=== PATIENT | female | born 2000 | race Caucasian/White ===

== ENCOUNTER → 2020-05-19 13:38 | Outpatient (BNVA) | payer MEDICAID, SELFPAY | PROVIDERS: Visit Provider Psychiatry & Neurology Psychiatry | DX: F60.3 Borderline personality disorder (principal); F43.12 Post-traumatic stress disorder, chronic; F33.2 Major depressive disorder, recurrent severe without psychotic features | CPT/HCPCS: 99204 ==

== ENCOUNTER 2020-05-29 16:51 | Emergency (ER) | payer MEDICAID, SELFPAY ==
[2020-05-29 16:55] VITALS: BP 113/59; PULSE 72; RESP 18; TEMP 36.6; O2SAT 100; BMI 37.8
[2020-05-29 17:52] VITALS: BP 120/77; PULSE 98; RESP 16; O2SAT 100
--- NOTE | 2020-05-29 18:11 | ED_ITS ---
HPI - Female Genitourinary General: Chief complaint: Urogenital-Female Stated complaint: UNABLE TO URINATE X 2 DAYS Time Seen by Provider: 05/29/20 17:47 Source: patient Mode of arrival: ambulatory Limitations: no limitations History of Present Illness: HPI Narrative: Patient is a 20-year-old female who presents to ED today with a complaint of difficulty with urination. Patient tells me over the past 2 weeks she has had dribbling to the point where she can barely urinate. She states she is having suprapubic pain. She tells me several years ago she had extensive vaginal reconstruction surgery after a rope swing lacerated her perineal region. Patient tells me she has had intermittent problems with urinary retention but states it normally only lasts a few days. She states she is having bladder spasms. She is having normal bowel movements. No fevers. She currently has an appointment with Dr. Levin scheduled for 06/16/2020. Associated symptoms: Reports abdominal pain (suprapubic); Deny headache(s), nausea or vaginal discharge Date of Last Menstrual Period: 05/29/20 Review of Systems Const: Denies: fever(s), chills, body aches or fatigue Card: Denies: chest pain Resp: Denies: dyspnea GI: Reports: abdominal pain (suprapubic); Denies: nausea, vomiting or diarrhea : Reports: difficulty voiding, urinary urgency, urinary hesitancy and dribbling; Denies: flank pain, urinary incontinence, hematuria, vaginal odor, vaginal bleeding, vaginal discharge or pelvic pain Musc: Denies: neck pain or back pain Skin/Breast: Denies: rash Neuro: Denies: headache(s) [facility] ED PFSH: Social History Smoking and tobacco status: former smoker Quit status (tobacco): has quit using tobacco Year quit tobacco: 2019 Second hand smoke exposure: No Current gender identity: Female Female Reproductive History: Date of last menstrual period: 05/29/20 Physical Exam Const: COMMON NORMALS: no acute distress, average body habitus, patient oriented x3, no limitations, healthy appearing, alert and well nourished Resp: COMMON NORMALS: normal respiratory effort and clear to auscultation bilaterally AUSCULTATION: clear to auscultation bilaterally Cardio: COMMON NORMALS: regular rate and regular rhythm RATE: regular rate RHYTHM: regular rhythm GI: COMMON NORMALS: Normal to inspection, nondistended, normoactive bowel sounds present, Soft to palpation, No hepatosplenomegaly present and no masses PALPATION: Yes Soft to palpation, Yes Tenderness to palpation present (GI) (suprapubic) and Yes No hepatosplenomegaly present : COMMON NORMALS: Yes no CVA tenderness BLADDER/KIDNEY EXAM: Yes no CVA tenderness Back/Pelvis: COMMON NORMALS: no CVA tenderness Neuro: COMMON NORMALS: patient oriented x3 SENSORIUM/ORIENTATION: Yes alert Skin: COMMON NORMALS: no rashes or lesions noted GENERAL SKIN EXAM: no rashes or lesions noted Course Reevaluation(s): Reevaluation #1: bladder scanner read between 400-500ml; RN reports they drained approximately 400cc when they cathed patient Vital Signs: Vital signs: Vital Signs Temperature 97.8 F 05/29/20 16:55 Pulse Rate 98 05/29/20 17:52 Respiratory Rate 16 05/29/20 18:44 Blood Pressure 120/77 05/29/20 17:52 Pulse Oximetry 100 05/29/20 18:44 MDM - Female MDM Narrative: Medical decision making narrative: Patient presenting with urinary retention. Patient was not able to urinate here. She had over 400 mL in her bladder that was drained after cath. Patient's labs here are non- concerning. Her vital signs are stable. As much as patient does not want a Mccloud catheter she states her urinary retention and subsequent suprapubic pain is interfering with life therefore agrees to this. She currently has an appointment scheduled with Dr. Levin on 06/16. I will place her information with case management to try to get her a sooner appointment. Lab Data: Labs: Lab Results 05/29/20 05/29/20 05/29/20 Range/Units 18:41 18:41 18:59 WBC 5.6 (4.0-10.0) 10^3/ uL RBC 4.01 L (4.1-5.3) 10^6/u L Hgb 12.0 (11.5-15.3) g/dL Hct 37.0 (37.0-47.0) % MCV 92.3 (81-99) fL MCH 29.9 (28.0-34.0) pg MCHC 32.4 (30.0-36.0) g/dL RDW 13.9 (12.1-15.1) % Plt Count 175 (130-400) 10^3/c mm MPV 10.2 (7.4-10.4) fL Neut % (Auto) 65.5 % Lymph % (Auto) 25.6 % [place] % (Auto) 5.8 % Eos % (Auto) 2.5 % Baso % (Auto) 0.4 % Neut # (Auto) 3.64 (1.8-7.7) 10^3/u L Lymph # (Auto) 1.4 (0.8-4.8) 10^3/u L [place] # (Auto) 0.3 (0.2-0.9) 10^3/u L Eos # (Auto) 0.1 (0.0-0.8) 10^3/u L Baso # (Auto) 0.0 (0.0-0.1) 10^3/u L Nucleated RBC % (a uto) 0 % Nucleated RBCs # 0.0 /100WBC Sodium (136-145) mmol/L Potassium (3.5-5.1) mmol/L Chloride (98-107) mmol/L Carbon Dioxide (22-29) mmol/L Anion Gap (5-19) BUN (6-20) mg/dL Creatinine (0.5-0.9) mg/dL GFR Calculation (90-130) mL/min Glucose (65-115) mg/dL Calculated Osmolal ity (285-295) mOsm/k g Calcium (8.5-10.5) mg/dL Total Bilirubin (0.15-1.2) mg/dL AST (0-32) U/L ALT (0-33) U/L Alkaline Phosphata se (35-105) IU/L Total Protein (6.6-8.7) g/dL Albumin (3.5-5.2) g/dL Globulin (1.3-4.6) g/dL Urine Color Yellow (Yellow) Urine Appearance Clear (CLEAR) Urine pH 6 (5-7) Ur Specific Gravit y 1.015 (1.005-1.030) Urine Protein Neg (Negative) Urine Glucose (UA) Norm (Normal) Urine Ketones Negative (Negative) Urine Blood Neg (Negative) Urine Nitrate Negative (Negative) Urine Bilirubin Neg (Negative) Urine Urobilinogen Norm (Negative) mg/dL Ur Leukocyte Emily ase Negative (Negative) Urine HCG, Qual Negative (Negative) 05/29/20 Range/Units 18:59 WBC (4.0-10.0) 10^3/ uL RBC (4.1-5.3) 10^6/u L Hgb (11.5-15.3) g/dL Hct (37.0-47.0) % MCV (81-99) fL MCH (28.0-34.0) pg MCHC (30.0-36.0) g/dL RDW (12.1-15.1) % Plt Count (130-400) 10^3/c mm MPV (7.4-10.4) fL Neut % (Auto) % Lymph % (Auto) % [place] % (Auto) % Eos % (Auto) % Baso % (Auto) % Neut # (Auto) (1.8-7.7) 10^3/u L Lymph # (Auto) (0.8-4.8) 10^3/u L [place] # (Auto) (0.2-0.9) 10^3/u L Eos # (Auto) (0.0-0.8) 10^3/u L Baso # (Auto) (0.0-0.1) 10^3/u L Nucleated RBC % (a uto) % Nucleated RBCs # /100WBC Sodium 140 (136-145) mmol/L Potassium 3.7 (3.5-5.1) mmol/L Chloride 104 (98-107) mmol/L Carbon Dioxide 25 (22-29) mmol/L Anion Gap 14.7 (5-19) BUN 6 (6-20) mg/dL Creatinine 0.7 (0.5-0.9) mg/dL GFR Calculation 104.6 (90-130) mL/min Glucose 95 (65-115) mg/dL Calculated Osmolal ity 287 (285-295) mOsm/k g Calcium 9.0 (8.5-10.5) mg/dL Total Bilirubin 0.4 (0.15-1.2) mg/dL AST 13 (0-32) U/L ALT 13 (0-33) U/L Alkaline Phosphata se 86 (35-105) IU/L Total Protein 7.0 (6.6-8.7) g/dL Albumin 4.2 (3.5-5.2) g/dL Globulin 2.8 (1.3-4.6) g/dL Urine Color (Yellow) Urine Appearance (CLEAR) Urine pH (5-7) Ur Specific Gravit y (1.005-1.030) Urine Protein (Negative) Urine Glucose (UA) (Normal) Urine Ketones (Negative) Urine Blood (Negative) Urine Nitrate (Negative) Urine Bilirubin (Negative) Urine Urobilinogen (Negative) mg/dL Ur Leukocyte Emily ase (Negative) Urine HCG, Qual (Negative) Discharge Plan Discharge Patient Disposition: Home Clinical Impression: Urinary retention Condition: Stable Prescriptions: No Action trazodone 50 mg tablet 100 mg PO .HS PRN (Reason: insomnia) Qty: 60 RF: 1 lamotrigine [Lamictal] 25 mg tablet 25 mg PO DAILY Qty: 45 RF: 0 levothyroxine 150 mcg tablet 150 mcg PO DAILY RF: 0 Discharge Orders: Discharge ED (Routine); Ordered 05/29/20 Ordered By: Alisa Leal Referrals: Kasandra Ruiz [Primary Care Provider] - Donaldo Levin MD [Physician] - Patient Instructions: Acute Urinary Retention in Women (ED) Activity Restrictions/Additional Instructions: As discussed I have placed your information with case management to try to get you a sooner appointment with Dr. Levin. You need to return to the emergency department if your Mccloud catheter is not draining appropriately, you begin having severe abdominal pain, fevers, or any other concerns you may have. Coding Level of Care Code ED Medical Insurance Biller for Chg Fwd Exam Detailed
[2020-05-29 18:44] VITALS: RESP 16; O2SAT 100
[2020-05-29 18:48] LABS: Add Urine Microscopic? NO
[2020-05-29 18:56] LABS: Bilirubin Urine Neg (Negative); Blood Urine Neg (Negative); Glucose Urine UA Norm (Normal); Ketones Urine Negative (Negative); Nitrate Urine Negative (Negative); Protein Urine Neg (Negative); Specific Gravity, Urine 1.015 (1.005-1.030); Urine Appearance Clear (CLEAR); Urine Color Yellow (Yellow); pH Urine 6 (5-7)
[2020-05-29 18:57] LABS: Leukocyte Esterase Urine Negative (Negative); Urobilinogen Urine Norm (Negative)
[2020-05-29 19:27] LABS: Basophils % 0.4 %; Eosinophils # 0.1 10^3/uL (0.0-0.8); Eosinophils % 2.5 %; Lymphocytes # 1.4 10^3/uL (0.8-4.8); Lymphocytes % 25.6 %; Mean Corpuscular HGB Conc 32.4 g/dL (30.0-36.0); Mean Corpuscular Hemoglobin 29.9 pg (28.0-34.0); Mean Corpuscular Volume 92.3 fL (81-99); Mean Platelet Volume 10.2 fL (7.4-10.4); Monocytes # 0.3 10^3/uL (0.2-0.9); Monocytes % 5.8 %; Neutrophils # 3.64 10^3/uL (1.8-7.7); Neutrophils % 65.5 %; Nucleated Red Blood Cells % 0 %; Platelet Count 175 10^3/cmm (130-400); Red Blood Count 4.01 10^6/uL (4.1-5.3); Red Cell Distribution Width 13.9 % (12.1-15.1); White Blood Count 5.6 10^3/uL (4.0-10.0)
[2020-05-29 19:45] LABS: Alanine Aminotransferase 13 U/L (0-33); Albumin Level 4.2 g/dL (3.5-5.2); Alkaline Phosphatase 86 IU/L (35-105); Anion Gap 14.7 (5-19); Aspartate Amino Transferase 13 U/L (0-32); Blood Urea Nitrogen 6 mg/dL (6-20); Carbon Dioxide 25 mmol/L (22-29); Chloride 104 mmol/L (98-107); Globulin 2.8 g/dL (1.3-4.6); Glomerular Filtration Rate 104.6 mL/min (90-130); Glucose 95 mg/dL (65-115); Osmolality Calculated 287 mOsm/kg (285-295); Potassium 3.7 mmol/L (3.5-5.1); Sodium 140 mmol/L (136-145); Total Bilirubin 0.4 mg/dL (0.15-1.2)
[2020-05-29 20:56] VITALS: PULSE 86; RESP 16; O2SAT 100
--- NOTE | 2020-05-30 09:13 | DCPLANNER ---
advertising agency manager had message to schedule a follow up appointment for patient with Dr. Levin. advertising agency manager called the office of Dr. Levin, spoke with Rosangela, gave clinic patients information. advertising agency manager was told that patients information would be printed and reviewed. Clinic will call patient with appointment information.
--- NOTE | 2020-06-04 11:07 | DCPLANNER ---
Patient has a follow up appointment scheduled for Tuesday, June 16, 2020 at 3:[address] Levin. Clinic will call patient with appointment information.
--- NOTE | 2020-07-03 15:24 | DCPLANNER ---
Patient had a follow up appointment scheduled for 06.16.[address] Levin - patient did attend appointment.
== END 2020-05-29 20:58 | disposition home or self-care (01) ==
PROVIDERS: Emergency Provider Physician Assistant; PCP Nurse Practitioner Family
DX: R33.9 Retention of urine, unspecified (principal); Z87.891 Personal history of nicotine dependence
CPT/HCPCS: 36415; 51702; 51798; 80053; 81003; 81025; 85025; 99283

== ENCOUNTER → 2020-06-27 09:12 | Outpatient (BNVA) | payer MEDICAID, SELFPAY | PROVIDERS: Visit Provider Psychiatry & Neurology Psychiatry | DX: F33.2 Major depressive disorder, recurrent severe without psychotic features (principal); F43.12 Post-traumatic stress disorder, chronic; F60.3 Borderline personality disorder | CPT/HCPCS: 99213 ==

== ENCOUNTER → 2020-07-03 14:07 | Outpatient (BNVA) | payer MEDICAID, SELFPAY | PROVIDERS: Visit Provider Counselor Professional | DX: F33.2 Major depressive disorder, recurrent severe without psychotic features (principal); F43.12 Post-traumatic stress disorder, chronic; F60.3 Borderline personality disorder | CPT/HCPCS: 90832 ==

== ENCOUNTER → 2020-07-04 10:24 | Outpatient (BNVA) | payer MEDICAID, SELFPAY | PROVIDERS: PCP Nurse Practitioner Family; Visit Provider Urology | DX: N39.9 Disorder of urinary system, unspecified (principal); N81.89 Other female genital prolapse; R33.9 Retention of urine, unspecified; N39.3 Stress incontinence (female) (male) | CPT/HCPCS: 81003 ==

== ENCOUNTER → 2020-07-22 11:10 | Outpatient (BNVA) | payer MEDICAID, SELFPAY | PROVIDERS: PCP Nurse Practitioner Family; Visit Provider Counselor Professional | DX: F33.2 Major depressive disorder, recurrent severe without psychotic features (principal); F43.12 Post-traumatic stress disorder, chronic; F60.3 Borderline personality disorder | CPT/HCPCS: 90832 ==

== ENCOUNTER → 2020-08-12 09:15 | Outpatient (BNVA) | payer MEDICAID, SELFPAY | PROVIDERS: PCP Nurse Practitioner Family; Visit Provider Nurse Practitioner Women's Health | DX: Z34.80 Encounter for supervision of other normal pregnancy, unspecified trimester (principal) | CPT/HCPCS: 81000 ==

== ENCOUNTER 2020-08-15 14:54 | Outpatient (CLI) | payer MEDICAID, SELFPAY ==
--- NOTE | 2020-08-15 15:45 | US_ITS ---
WS: [id number] TRANSVAGINAL PELVIC ULTRASOUND HISTORY: O20.9 - Hemorrhage in early , unspecified COMPARISON: None available. Single intrauterine gestation is identified. Mean sac diameter of 2.7 cm. Onton-rump length of 1.6 cm corresponds to gestation of 8 weeks and 0 days. Cardiac activity at 171 bpm. Small subchorionic hemo rrhage along the inferior gestational sac with a maximum diameter of 10 mm. No free fluid. LEFT ovary is normal size and normal vascularity. RIGHT ovary is not identified. US/US transvaginal [id number] IMPRESSION: 1. Single intrauterine gestation 8 weeks 0 days with an EDC of 03/27/2021. 2. Very small subchorionic hemorrhage with a maximum diameter of 10 mm.
== END 2020-08-15 14:55 | disposition home or self-care (01) ==
LOC: RAD 14:57
PROVIDERS: PCP Nurse Practitioner Family; Visit Provider Obstetrics & Gynecology
DX: O20.9 Hemorrhage in early pregnancy, unspecified (principal)
CPT/HCPCS: 76830; 86850; 86900

== ENCOUNTER 2020-08-19 22:01 | Emergency (ER) | payer MEDICAID, SELFPAY ==
[2020-08-19 22:03] VITALS: BP 119/70; PULSE 81; RESP 16; TEMP 36.7; O2SAT 99; BMI 37.8
--- NOTE | 2020-08-19 22:09 | W.ED.ABDPA2 ---
HPI - Abdominal Pain General: Chief Complaint: Abdominal Pain Stated Complaint: ABD PAIN Time Seen by Provider: 08/19/20 22:04 History of Present Illness: HPI narrative: Patient is a 9-week 20-year-old female that comes to the ED with abdominal cramping pain. Past surgical history of an appendectomy and had a D&C. Patient says that last week she started having some vaginal bleeding and abdominal cramping. She sees Dr. Harrison for OB and on Tuesday she had an ultrasound and it showed a single intrauterine that is 8 weeks gestation and there was a small subchorionic hemorrhage noted. Patient says her vaginal bleeding has completely resolved a couple days ago. She says she is still having abdominal cramping pain that has continued to get worse. She says it has sits at about a 6 out of 10 and then the pain has episodes where it is more sharp and severe and she rates it a 10 out of 10. Patient also says for the past week she has had a lot of nausea and vomiting as well. She denies any bladder or bowel symptoms. Patient endorses having a subjective fever yesterday. She says she has had about 3000 mg of Tylenol today to help with pain. Her next appoint with Dr. Harrison is August 26. Associated Symptoms: Reports nausea and vomiting; Denies chills, constipation, diarrhea, dysuria, fever(s), hematochezia and hematuria Related Data: Date of Last Menstrual Period: 05/29/20 Review of Systems Const: Denies: fever(s), chills or fatigue Eyes: Denies: change in vision or eye discomfort ENMT: Denies: throat pain, odynophagia, nasal discharge or nasal congestion Card: Denies: chest pain, palpitations, edema, swelling of feet/ankles, dyspnea on exertion or orthopnea Resp: Denies: dyspnea, productive cough or non-productive cough GI: Reports: abdominal pain (Lower abdominal cramping), nausea and vomiting; Denies: diarrhea, constipation or hematochezia : Reports: pelvic pain (cramping); Denies: flank pain, dysuria, hematuria, vaginal bleeding or vaginal discharge Musc: Denies: neck pain, back pain or extremity swelling Skin/Breast: Denies: rash or new lesions Neuro: Denies: headache(s), numbness in extremities or weakness in extremities PFSH ED PFSH: Medical History Hypothyroid Incomplete bladder emptying No pertinent past medical history neghx: htn,dm,dvt/pe PCP: [facility] [place] Pelvic floor weakness JUSTIN (stress urinary incontinence, female) Surgical History Hx of appendectomy Hx of dilation and curettage (~2019) Hx of vaginal surgery (~2010) reconstruction Family History Father Colon cancer dx age 46--- cancer began in brain and spread Diabetes Hypertension Grandmother Diabetes Paternal Thyroid disease Paternal Family/Other Ovarian cancer Paternal Aunt--dx age 32 Sister Thyroid disease Denies family history of Heart disease Hypercholesteremia Breast cancer Uterine cancer Stroke Female Reproductive History: Date of last menstrual period: 05/29/20 Physical Exam Const: COMMON NORMALS: no acute distress, patient oriented x3, healthy appearing and alert GENERAL APPEARANCE: cooperative; not comfortable (Patient appears uncomfortable due to episodes of abdominal cramping.) HENMT: COMMON NORMALS: normocephalic HEAD & SCALP: normocephalic MOUTH: Normal oral and palatal mucosa present THROAT: posterior oropharynx normal and uvula midline Neck/C-Spine: COMMON NORMALS: supple GENERAL: Yes normal visual inspection Resp: COMMON NORMALS: normal respiratory effort, No retractions, No use of accessory muscles and clear to auscultation bilaterally AUSCULTATION: clear to auscultation bilaterally Cardio: COMMON NORMALS: regular rate, regular rhythm, S1 normal heart sound present, S2 normal heart sound present, No gallops present (Cardio), No clicks present (Cardio), No murmurs present (Cardio) and Peripheral pulses 2+ throughout RATE: regular rate RHYTHM: regular rhythm HEART SOUNDS: S1 normal heart sound present and S2 normal heart sound present PERIPHERAL PULSES: Peripheral pulses 2+ throughout GI: COMMON NORMALS: Normal to inspection, nondistended, normoactive bowel sounds present, Soft to palpation and no masses INSPECTION: Yes central obesity PALPATION: Yes Soft to palpation and Yes Tenderness to palpation present (GI) (Mild tenderness upon palpation on left side of abdomen.) : COMMON NORMALS: Yes no CVA tenderness BLADDER/KIDNEY EXAM: Yes no CVA tenderness Back/Pelvis: COMMON NORMALS: no CVA tenderness Extremity: COMMON NORMALS: normal to inspection Neuro: COMMON NORMALS: patient oriented x3 SENSORIUM/ORIENTATION: Yes alert GAIT: Yes Normal gait present Skin: GENERAL SKIN EXAM: dry skin Course ED course: Dr. Olson performed a bedside ultrasound-single intrauterine noted with heart rate of 148. Vital Signs: Vital signs: Vital Signs Temperature 98.0 F 08/19/20 22:03 Pulse Rate 79 08/19/20 23:04 Respiratory Rate 16 08/19/20 23:04 Blood Pressure 108/70 08/19/20 23:04 Pulse Oximetry 99 08/19/20 23:04 MDM - Abdominal Pain MDM Narrative: Medical decision making narrative: Patient is a 20-year-old female with 9 weeks comes to the ED with lower abdominal cramping pain. Patient was seen by her OB provider Dr. Harrison last Yemi for same symptoms but at that time she had vaginal bleeding as well and an ultrasound was done and it showed a single intrauterine that is 8 weeks gestation and there was a small subchorionic hemorrhage noted. Today patient is just having some abdominal cramping and pain and her vaginal bleeding has resolved. CBC and CMP were unremarkable. hCG quant 95,516. Urinalysis was unremarkable as well. Dr. Olson performed a bedside ultrasound and it showed a single intrauterine with a heart rate of 148. While here in the ED patient was given some IV fluids, Reglan and diphenhydramine. Her symptoms did improve. Patient was discharged home and diagnosed with with abdominal cramping and lower quadrant antepartum. She was told to follow-up with her OB doctor at her next scheduled appointment on August 26. Return to ED precautions given. Patient understood agree with plan. Lab Data: Attestation: I reviewed the patient's lab results. Labs: Lab Results 08/19/20 08/19/20 08/19/20 Range/Units 22:12 22:25 22:25 WBC 6.5 (4.0-10.0) 10^3/ uL RBC 4.36 (4.1-5.3) 10^6/u L Hgb 12.7 (11.5-15.3) g/dL Hct 39.3 (37.0-47.0) % MCV 90.1 (81-99) fL MCH 29.1 (28.0-34.0) pg MCHC 32.3 (30.0-36.0) g/dL RDW 12.7 (12.1-15.1) % Plt Count 226 (130-400) 10^3/c mm MPV 10.0 (7.4-10.4) fL Neut % (Auto) 61.0 % Lymph % (Auto) 29.0 % [place] % (Auto) 7.1 % Eos % (Auto) 2.2 % Baso % (Auto) 0.5 % Neut # (Auto) 3.97 (1.8-7.7) 10^3/u L Lymph # (Auto) 1.9 (0.8-4.8) 10^3/u L [place] # (Auto) 0.5 (0.2-0.9) 10^3/u L Eos # (Auto) 0.1 (0.0-0.8) 10^3/u L Baso # (Auto) 0.0 (0.0-0.1) 10^3/u L Nucleated RBC % (a uto) 0 % Nucleated RBCs # 0.0 /100WBC Sodium 133 L (136-145) mmol/L Potassium 4.4 (3.5-5.1) mmol/L Chloride 103 (98-107) mmol/L Carbon Dioxide 22 (22-29) mmol/L Anion Gap 12.4 (5-19) BUN 7 (6-20) mg/dL Creatinine 0.4 L (0.5-0.9) mg/dL GFR Calculation 199.6 H (90-130) mL/min Glucose 86 (65-115) mg/dL Calculated Osmolal ity 273 L (285-295) mOsm/k g Calcium 9.1 (8.5-10.5) mg/dL Total Bilirubin 0.3 (0.15-1.2) mg/dL AST 17 (0-32) U/L ALT 9 (0-33) U/L Alkaline Phosphata se 102 (35-105) IU/L Total Protein 6.9 (6.6-8.7) g/dL Albumin 4.2 (3.5-5.2) g/dL Globulin 2.7 (1.3-4.6) g/dL Lipase 26 (13-60) U/L HCG, Qual Ser , Neo i-Qnt mIU/mL Urine Color Yellow (Yellow) Urine Appearance Clear (CLEAR) Urine pH 7 (5-7) Ur Specific Gravit y 1.010 (1.005-1.030) Urine Protein Neg (Negative) Urine Glucose (UA) Norm (Normal) Urine Ketones Negative (Negative) Urine Blood Neg (Negative) Urine Nitrate Negative (Negative) Urine Bilirubin Neg (Negative) Urine Urobilinogen Norm (Negative) mg/dL Ur Leukocyte Emily ase Negative (Negative) Urine RBC None (0-2) /hpf Urine WBC None (0-5) /hpf Ur Squamous Epith Cells 0-4 H (0-5) /hpf Ur Transition Epit h Cell None /hpf Amorphous Sediment 4+ /hpf Urine Bacteria None (NONE) /hpf 08/19/20 08/19/20 Range/Units 22:25 22:25 WBC (4.0-10.0) 10^3/ uL RBC (4.1-5.3) 10^6/u L Hgb (11.5-15.3) g/dL Hct (37.0-47.0) % MCV (81-99) fL MCH (28.0-34.0) pg MCHC (30.0-36.0) g/dL RDW (12.1-15.1) % Plt Count (130-400) 10^3/c mm MPV (7.4-10.4) fL Neut % (Auto) % Lymph % (Auto) % [place] % (Auto) % Eos % (Auto) % Baso % (Auto) % Neut # (Auto) (1.8-7.7) 10^3/u L Lymph # (Auto) (0.8-4.8) 10^3/u L [place] # (Auto) (0.2-0.9) 10^3/u L Eos # (Auto) (0.0-0.8) 10^3/u L Baso # (Auto) (0.0-0.1) 10^3/u L Nucleated RBC % (a uto) % Nucleated RBCs # /100WBC Sodium (136-145) mmol/L Potassium (3.5-5.1) mmol/L Chloride (98-107) mmol/L Carbon Dioxide (22-29) mmol/L Anion Gap (5-19) BUN (6-20) mg/dL Creatinine (0.5-0.9) mg/dL GFR Calculation (90-130) mL/min Glucose (65-115) mg/dL Calculated Osmolal ity (285-295) mOsm/k g Calcium (8.5-10.5) mg/dL Total Bilirubin (0.15-1.2) mg/dL AST (0-32) U/L ALT (0-33) U/L Alkaline Phosphata se (35-105) IU/L Total Protein (6.6-8.7) g/dL Albumin (3.5-5.2) g/dL Globulin (1.3-4.6) g/dL Lipase (13-60) U/L HCG, Qual Cancelled Ser , Neo i-Qnt 93163.00 mIU/mL Urine Color (Yellow) Urine Appearance (CLEAR) Urine pH (5-7) Ur Specific Gravit y (1.005-1.030) Urine Protein (Negative) Urine Glucose (UA) (Normal) Urine Ketones (Negative) Urine Blood (Negative) Urine Nitrate (Negative) Urine Bilirubin (Negative) Urine Urobilinogen (Negative) mg/dL Ur Leukocyte Emily ase (Negative) Urine RBC (0-2) /hpf Urine WBC (0-5) /hpf Ur Squamous Epith Cells (0-5) /hpf Ur Transition Epit h Cell /hpf Amorphous Sediment /hpf Urine Bacteria (NONE) /hpf Discharge Plan Discharge Patient Disposition: Home Clinical Impression: with abdominal cramping of lower quadrant, antepartum Condition: Stable Prescriptions: New Reglan 10 mg tablet 10 mg PO Q6H PRN (Reason: nausea and vomiting) Qty: 12 RF: 0 No Action levothyroxine 150 mcg tablet 150 mcg PO DAILY RF: 0 trazodone 50 mg Tablet 50 mg PO BEDTIME PRN (Reason: Sleep) RF: 0 Discharge Orders: Discharge ED (Routine); Ordered 08/19/20 Ordered By: Yousif Stephenson Referrals: Kasandra Ruiz [Primary Care Provider] - Discharge Diet: Regular Discharge Activity: Increase activity as tolerated Patient Instructions: (ED), Abdominal Pain in (ED) Activity Restrictions/Additional Instructions: Follow-up with medical provider as directed entered next scheduled appointment on August 26. Take medications as prescribed. Return to the ER or your medical provider if condition worsens. Please read and understand discharge instructions. Thank you for choosing [facility] for your healthcare needs today. Please realize this is an emergency room and that we are providing you with a medical screening exam and this may not be complete and all inclusive of all the testing and or work up that you may need to determine your ailment or severity of your illness. It is very important that you follow up as instructed or that you return to the Emergency Department should you have concerns or if your condition changes or worsens in any way. Stand Alone Forms: Work/School Release Coding Level of Care Code ED [employer] Operator for Juana James Exam Comprehensive
[2020-08-19 22:25] LABS: Bilirubin Urine Neg (Negative); Blood Urine Neg (Negative); Glucose Urine UA Norm (Normal); Ketones Urine Negative (Negative); Leukocyte Esterase Urine Negative (Negative); Nitrate Urine Negative (Negative); Protein Urine Neg (Negative); Urine Appearance Clear (CLEAR); Urine Color Yellow (Yellow); Urobilinogen Urine Norm (Negative); pH Urine 7 (5-7)
[2020-08-19 22:26] LABS: Add Urine Culture? No; Amorphous Sediment Urine 4+ /hpf; Squamous Epithelial Cell Urine 0-4 /hpf (0-5)
[2020-08-19 22:27] VITALS: BP 115/71; PULSE 85; RESP 16; O2SAT 97
[2020-08-19 22:34] LABS: Basophils % 0.5 %; Eosinophils # 0.1 10^3/uL (0.0-0.8); Eosinophils % 2.2 %; Hematocrit 39.3 % (37.0-47.0); Hemoglobin 12.7 g/dL (11.5-15.3); Lymphocytes # 1.9 10^3/uL (0.8-4.8); Mean Corpuscular HGB Conc 32.3 g/dL (30.0-36.0); Mean Corpuscular Hemoglobin 29.1 pg (28.0-34.0); Mean Corpuscular Volume 90.1 fL (81-99); Monocytes # 0.5 10^3/uL (0.2-0.9); Monocytes % 7.1 %; Neutrophils # 3.97 10^3/uL (1.8-7.7); Nucleated Red Blood Cells % 0 %; Platelet Count 226 10^3/cmm (130-400); Red Blood Count 4.36 10^6/uL (4.1-5.3); Red Cell Distribution Width 12.7 % (12.1-15.1); White Blood Count 6.5 10^3/uL (4.0-10.0)
[2020-08-19] MEDS: metoclopramide 5 mg/mL SDV 2 mL 10 MG IVP (22:37)
[2020-08-19] MEDS: diphenhydrAMINE 50 mg/mL SDV 1mL IVP (22:41)
[2020-08-19 22:50] LABS: Albumin Level 4.2 g/dL (3.5-5.2); Alkaline Phosphatase 102 IU/L (35-105); Blood Urea Nitrogen 7 mg/dL (6-20); Calcium 9.1 mg/dL (8.5-10.5); Carbon Dioxide 22 mmol/L (22-29); Chloride 103 mmol/L (98-107); Globulin 2.7 g/dL (1.3-4.6); Glomerular Filtration Rate 199.6 mL/min (90-130); Glucose 86 mg/dL (65-115); Lipase 26 U/L (13-60); Osmolality Calculated 273 mOsm/kg (285-295); Sodium 133 mmol/L (136-145); Total Bilirubin 0.3 mg/dL (0.15-1.2); Total Protein 6.9 g/dL (6.6-8.7)
[2020-08-19 22:51] LABS: Alanine Aminotransferase 9 U/L (0-33); Anion Gap 12.4 (5-19); Aspartate Amino Transferase 17 U/L (0-32); Potassium 4.4 mmol/L (3.5-5.1)
[2020-08-19] MEDS: sodium chloride 0.9% 500 ML 999 ML IV (23:01)
[2020-08-19 23:04] VITALS: BP 108/70; PULSE 79; RESP 16; O2SAT 99
== END 2020-08-19 23:56 | disposition home or self-care (01) ==
PROVIDERS: Emergency Provider Physician Assistant; PCP Nurse Practitioner Family
DX: O26.891 Other specified pregnancy related conditions, first trimester (principal); R10.30 Lower abdominal pain, unspecified; Z3A.09 9 weeks gestation of pregnancy
CPT/HCPCS: 80053; 81001; 83690; 84702; 85025; 96374; 96375; 99283; J1200; J2765; J7040

== ENCOUNTER → 2020-08-26 12:11 | Outpatient (BNVA) | payer MEDICAID, SELFPAY | PROVIDERS: PCP Nurse Practitioner Family; Visit Provider Obstetrics & Gynecology | DX: O99.511 Diseases of the respiratory system complicating pregnancy, first trimester (principal); J45.909 Unspecified asthma, uncomplicated; O21.9 Vomiting of pregnancy, unspecified; E03.9 Hypothyroidism, unspecified; Z3A.00 Weeks of gestation of pregnancy not specified | CPT/HCPCS: 81000; 82950; 84439; 84443; 84481 ==

== ENCOUNTER 2020-08-29 02:18 | Emergency (ER) | payer MEDICAID, SELFPAY ==
[2020-08-29 02:19] VITALS: BP 120/65; PULSE 96; RESP 16; TEMP 36.6; O2SAT 98; BMI 37.8
--- NOTE | 2020-08-29 02:25 | ED_ITS ---
HPI - Fall General: Chief Complaint: Fall Stated Complaint: FALL Time Seen by Provider: 08/29/20 02:19 Source: patient Mode of arrival: ambulatory Limitations: no limitations History of Present Illness: HPI Narrative: 20-year-old female who is 10 weeks states she fell down multiple stairs roughly 1 hour ago. States that during the fall she had hit her head and has head neck pain. She is placed in a c-collar by EMS. Is complaining of lumbar pain as well. She rates her pain a 7 out of 10. She is currently and is concerned about baby as well. Has some mild pelvic pain. Patient is amatory in the room. Denies any loss of consciousness. Patient given fentanyl in route which did improve her pain. Associated symptoms-after fall: Reports headache(s) and neck pain; Denies abdominal pain or chest pain Review of Systems Const: Denies: fever(s), chills, body aches or change in appetite Eyes: Denies: blurry vision or eye discomfort ENMT: Denies: throat pain or dental pain Card: Denies: chest pain Resp: Denies: dyspnea GI: Denies: abdominal pain, nausea, vomiting or diarrhea : Denies: dysuria Musc: Reports: neck pain and back pain Skin/Breast: Denies: rash Neuro: Reports: headache(s) Psych: Denies: depression Balwinder/Lymph: Denies: easy bruising All/Imm: Denies: urticaria [facility] ED PFSH: Medical History (Updated 08/29/20 @ 03:37 by Cornelia Olson MD) Hypothyroid Incomplete bladder emptying No pertinent past medical history neghx: htn,dm,dvt/pe PCP: [facility] [place] Pelvic floor weakness JUSTIN (stress urinary incontinence, female) Surgical History Hx of appendectomy Hx of dilation and curettage (~2019) Hx of vaginal surgery (~2010) reconstruction Family History (Updated 08/26/20 @ 11:43 by Ricarda Evans RN) Father Colon cancer dx age 46--- cancer began in brain and spread Diabetes Hypertension Grandmother Diabetes Paternal Thyroid disease Paternal Family/Other Ovarian cancer Paternal Aunt--dx age 32 Heart disease paternal aunt Sister Thyroid disease Brother Heart disease congenital heart disease Denies family history of Hypercholesteremia Breast cancer Uterine cancer Stroke Female Reproductive History: Date of last menstrual period: 05/29/20 Physical Exam Const: COMMON NORMALS: no acute distress, patient oriented x3 and healthy appearing HENMT: COMMON NORMALS: normocephalic HEAD & SCALP: normocephalic OTHER: Contusion to posterior scalp Eye: COMMON NORMALS: Equal, round and reactive pupils present and EOMs intact bilaterally PUPIL: Yes Equal, round and reactive pupils present Neck/C-Spine: OTHER: Currently in c-collar complaining of midline neck pain Chest: COMMONS NORMALS: normal inspection of the chest and normal palpation of entire chest wall Resp: COMMON NORMALS: normal respiratory effort, No retractions, No use of accessory muscles and clear to auscultation bilaterally AUSCULTATION: clear to auscultation bilaterally Cardio: COMMON NORMALS: regular rate, regular rhythm and No murmurs present (Cardio) RATE: regular rate RHYTHM: regular rhythm GI: COMMON NORMALS: Normal to inspection, nondistended, normoactive bowel sounds present, Soft to palpation, non-tender and no masses PALPATION: Yes Soft to palpation Back/Pelvis: OTHER: Tenderness along L-spine with no abnormality Extremity: COMMON NORMALS: normal to inspection and full ROM Neuro: COMMON NORMALS: patient oriented x3, moves all extremities and no focal motor deficits Psych: COMMON NORMALS: mental status grossly normal, Normal thought process present and cooperative THOUGHT PROCESS: Normal thought process present Skin: COMMON NORMALS: no rashes or lesions noted and no wounds GENERAL SKIN EXAM: no rashes or lesions noted Course Vital Signs: Vital signs: Vital Signs Temperature 97.9 F 08/29/20 02:19 Pulse Rate 96 08/29/20 02:19 Respiratory Rate 16 08/29/20 02:19 Blood Pressure 120/65 08/29/20 02:19 Pulse Oximetry 98 08/29/20 02:19 MDM - Fall MDM Narrative: Medical decision making narrative: Patient presents here with low back contusion along with neck strain from a fall. Patient also closed head injury. Her head CT is in x-rays are normal. Did bedside ultrasound she has an IUP roughly 10 weeks with heart rate of 148. She is stable for discharge and is to follow-up PCP and return if worsening. Imaging Data^: CT Head: Radiologist's impression: [address] [place] [address] CT Scan Report Signed Patient: Alisa Bone Unit #: [id number] : 2000 Age/Sex: 20 / F ADM Date: 08/29/20 Loc: ER Room/Bed: Attending Dr: Ordering Provider/Ordering MD: Cornelia Olson MD Date of Service: 08/29/20 Procedure(s): CT head wo con* [id number] Accession Number(s): [id number] Report Number: [id number] PROCEDURE INFORMATION: Exam: CT Head Without Contrast Exam date and time: 08/29/2020 2:26 AM Age: 20 years old Clinical indication: Injury or trauma; Blunt trauma (contusions or hematomas); Patient HX: Fall down stairs this a. M. C/O head and neck pain. C collar in place. TECHNIQUE: Imaging protocol: Computed tomography of the head without contrast. Radiation optimization: All CT scans at this facility use at least one of these dose optimization techniques: automated exposure control; mA and/or kV adjustment per patient size (includes targeted exams where dose is matched to clinical indication); or iterative reconstruction. COMPARISON: No relevant prior studies available. RADIATION DOSE METRICS: Total DLP (mGy-cm): 871.04 FINDINGS: Brain: Hyperdensities are seen at the apices of the basal ganglia bilaterally possibly representing benign idiopathic basal ganglia mineralization. A benign-appearing 2.4 mm calcification is seen within the white matter of the left frontal lobe. Cerebral ventricles: No ventriculomegaly. Bones/joints: Unremarkable. No acute fracture. Paranasal sinuses: Visualized sinuses are unremarkable. No fluid levels. Mastoid air cells: Visualized mastoid air cells are well aerated. Soft tissues: Unremarkable. CT/CT head wo con* [id number] IMPRESSION: There are no acute intracranial findings. ct c spine: Attestation: I personally reviewed and interpreted this imaging study as follows: Radiologist's impression: [facility] [address] [place] [address]. [place] [address] CT Scan Report Signed Patient: Alisa Bone Unit #: [id number] : 2000 Age/Sex: 20 / F ADM Date: 08/29/20 Loc: ER Room/Bed: Attending Dr: Ordering Provider/Ordering MD: Cornelia Olson MD Date of Service: 08/29/20 Procedure(s): CT cervical spin wo con* [id number] Accession Number(s): [id number] Report Number: [id number] PROCEDURE INFORMATION: Exam: CT Cervical Spine Without Contrast Exam date and time: 08/29/2020 2:26 AM Age: 20 years old Clinical indication: Injury or trauma; Blunt trauma; Patient HX: Fall down stairs this a. M. C/O head and neck pain. C collar in place. ; Additional info: Fal TECHNIQUE: Imaging protocol: Computed tomography images of the cervical spine without contrast. Radiation optimization: All CT scans at this facility use at least one of these dose optimization techniques: automated exposure control; mA and/or kV adjustment per patient size (includes targeted exams where dose is matched to clinical indication); or iterative reconstruction. COMPARISON: No relevant prior studies available. RADIATION DOSE METRICS: Total DLP (mGy-cm): 617.92 FINDINGS: Bones/joints: No acute fracture. Normal alignment. Discs/Spinal canal/Neural foramina: No significant disc protrusion. No severe spinal canal stenosis. No significant neural foraminal narrowing. Lungs: Lung apices are normal. Soft tissues: Unremarkable. CT/CT cervical spin wo con* [id number] IMPRESSION: No acute findings. Radiation Dose CTDIVOL = (mGy): DLP = 617.92 (mGy-cm) Dictated By: Jose Montoya MD Signed By: Jose Montoya MD Signed Date/Time: 08/29/20322 DD/ 0322 Other Xray: Radiologist's impression: [address] [address] XRay Report Signed Patient: Alisa Bone Unit #: [id number] : 2000 Age/Sex: 20 / F ADM Date: 08/29/20 Loc: ER Room/Bed: Attending Dr: Ordering Provider/Ordering MD: Cornelia Olson MD Date of Service: 08/29/20 Procedure(s): XR lumbar spine 2-3V* [id number] Accession Number(s): [id number] Report Number: [id number] PROCEDURE INFORMATION: Exam: XR Lumbosacral Spine Exam date and time: 08/29/2020 2:26 AM Age: 20 years old Clinical indication: Injury or trauma; Blunt trauma (contusions or hematomas); Patient HX: Fall down stairs. C/O low back pain. TECHNIQUE: Imaging protocol: XR of the lumbosacral spine. Views: 2 or 3 views. COMPARISON: No relevant prior studies available. FINDINGS: Bones/joints: Normal. No acute fracture. Normal alignment. Soft tissues: Unremarkable. XR/XR lumbar spine 2-3V* [id number] IMPRESSION: No acute findings. Discharge Plan Discharge Patient Disposition: Home Clinical Impression: Fall Qualifiers: Encounter type: initial encounter Qualified Code(s): W19.XXXA - Unspecified fall, initial encounter Neck strain Qualifiers: Encounter type: initial encounter Qualified Code(s): S16.1XXA - Strain of muscle, fascia and tendon at neck level, initial encounter Lumbar contusion Qualifiers: Encounter type: initial encounter Qualified Code(s): S30.0XXA - Contusion of lower back and pelvis, initial encounter Condition: Stable Prescriptions: No Action levothyroxine 150 mcg tablet 150 mcg PO DAILY RF: 0 albuterol sulfate [Proventil HFA] 90 mcg/actuation HFA aerosol inhaler 2 puff inhalation Q6H PRN (Reason: shortness of breath or wheezing) Qty: 8.5 RF: 0 promethazine 25 mg tablet 25 mg PO Q6H 30 Days Qty: 120 RF: 0 polymyxin B sulf-trimethoprim 10,000 unit- 1 mg/mL drops 1 drp ophthalmic (eye) QID 5 Days Qty: 10 RF: 0 Reglan 10 mg tablet 10 mg PO Q6H PRN (Reason: nausea and vomiting) Qty: 12 RF: 0 Discharge Orders: Discharge ED (Routine); Ordered 08/29/20 Ordered By: Cornelia Olson Referrals: Kasandra Ruiz [Primary Care Provider] - 1-3 days Discharge Diet: Advance as tolerated Discharge Activity: Resume usual activity Patient Instructions: Cervical Spine Strain (ED) Coding Level of Care Code ED [employer] Port[employer] Manager for Chg Fwd Exam Comprehensive
[2020-08-29 03:48] VITALS: BP 130/68; PULSE 75; RESP 16; TEMP 36.6; O2SAT 99
== END 2020-08-29 03:49 | disposition home or self-care (01) ==
PROVIDERS: Emergency Provider Emergency Medicine; PCP Nurse Practitioner Family
DX: O9A.211 Injury, poisoning and certain other consequences of external causes complicating pregnancy, first trimester (principal); S16.1XXA Strain of muscle, fascia and tendon at neck level, initial encounter; S30.0XXA Contusion of lower back and pelvis, initial encounter; Z3A.10 10 weeks gestation of pregnancy; W10.8XXA Fall (on) (from) other stairs and steps, initial encounter
CPT/HCPCS: 70450; 72100; 72125; 99283

== ENCOUNTER → 2020-09-10 14:20 | Outpatient (BNVA) | payer MEDICAID, SELFPAY | PROVIDERS: PCP Nurse Practitioner Family; Visit Provider Obstetrics & Gynecology | DX: Z34.80 Encounter for supervision of other normal pregnancy, unspecified trimester (principal) | CPT/HCPCS: 80307; 81000; 85027; 86592; 86762; 86803; 86850; 86900; 87086; 87340; 87491; 87591; 87806; 88175 ==

== ENCOUNTER 2020-09-30 21:54 | Emergency (ER) | payer MEDICAID, SELFPAY ==
[2020-09-30 22:20] VITALS: BP 111/74; PULSE 100; RESP 18; TEMP 36.9; O2SAT 97; BMI 38.6
[2020-09-30 22:36] LABS: Add Urine Microscopic? NO; Charge for UA Resulting for Rev
[2020-09-30 22:39] LABS: Bilirubin Urine Neg (Negative); Blood Urine Neg (Negative); Glucose Urine UA Norm (Normal); Ketones Urine 1+ (Negative); Leukocyte Esterase Urine Negative (Negative); Nitrate Urine Negative (Negative); Protein Urine Neg (Negative); Specific Gravity, Urine 1.005 (1.005-1.030); Urine Appearance Clear (CLEAR); Urine Color Yellow (Yellow); Urobilinogen Urine Norm (Negative); pH Urine 7 (5-7)
--- NOTE | 2020-09-30 23:14 | W.ED.GENADLT ---
HPI - General Adult General: Chief complaint: Fever Stated complaint: 15 wks , n/v, fever, dizzy Time Seen by Provider: 09/30/20 22:59 History of Present Illness: HPI narrative: This patient is a 20-year-old female who presents to the emergency department states she is 15 weeks . Patient states she was out in the sun pretty long for 2 days in a row doing a great [place]. Patient states on day 2 patient is calm overheated went inside because she did not feel well and felt nauseated. Checked her temperature was 104. Patient took some Tylenol and went to bed. Patient states she has had fatigue ever since she has not had any other fever but just does not feel good. Patient states she was profusely sweating up until she took her temperature and got inside. Patient complains of fatigue. Concerning for possible heat exhaustion. Will do medical evaluation treat as needed Associated symptoms: Deny chest pain, dyspnea, headache(s), nausea, rash, palpitations or vomiting Review of Systems General: Reports: 10 or more systems reviewed and unremarkable except in HPI and below Const: Reports: body aches and fatigue; Denies: fever(s) or chills Eyes: Denies: change in vision or blurry vision ENMT: Denies: throat pain, hoarseness or mouth pain Card: Denies: chest pain, palpitations, irregular heart rhythm, edema, swelling of feet/ankles or lightheadedness Resp: Denies: dyspnea, productive cough, non-productive cough, wheezing or pain on inspiration GI: Denies: abdominal pain, nausea or vomiting : Denies: flank pain, difficulty voiding, dysuria, urinary frequency, urinary urgency or urinary hesitancy Musc: Denies: neck pain, back pain, extremity pain, extremity swelling, joint pain, joint swelling, joint redness, joint warmth or limited range of motion Skin/Breast: Denies: rash, pruritus, erythema or skin tenderness Neuro: Denies: headache(s), numbness in extremities or weakness in extremities Psych: Denies: anxiety or depression PFS ED PFSH: Medical History Asthma Diagnosed at the age of 11 and is controlled with as needed albuterol inhaler which is worse over allergy season and winter. Denies any intubations or hospitalizations for asthma. Borderline personality disorder Multiple psychiatric issues for which she follows up with behavioral health care and is taking Lamictal. Her provider is aware that she is . Hypothyroid Diagnosed at the age of 9 and has been on medication since then. She states that this is managed by her primary care provider. No pertinent past medical history Denies diabetes, hypertension, seizures, DVT/PE PCP: RAMSES Basilio Surgical History Hx of appendectomy 2010--laparoscopic procedure Hx of dilation and curettage 2019--done for a missed at 9 weeks Hx of vaginal surgery 10/23/2011---surgery done at [facility]--procedure performed was examination under anesthesia with reattachment of the avulsed left labia minora, repair of a name mucosa and transected anal sphincter and perineum and proctoscopy performed by OB/general surgery. Operative reports have been scanned into the computer. Family History Father Colon cancer dx age 46--- cancer began in brain and spread Diabetes Hypertension Grandmother Diabetes Paternal Thyroid disease Paternal Family/Other Ovarian cancer Paternal Aunt--dx age 32 Heart disease paternal aunt Sister Thyroid disease Brother Heart disease congenital heart disease Denies family history of Hypercholesteremia Breast cancer Uterine cancer Stroke Female Reproductive History: Date of last menstrual period: 05/29/20 Physical Exam Const: COMMON NORMALS: no acute distress, average body habitus, patient oriented x3, no limitations, healthy appearing, alert and well nourished HENMT: COMMON NORMALS: normocephalic, atraumatic, hearing grossly normal bilaterally, external ears normal, EAC's normal, TM's normal bilaterally, Normal external nose present, Normal nasal mucous membranes and turbinates present, moist oral mucous membranes, oropharynx normal, dentition normal and gingiva normal HEAD & SCALP: normocephalic and atraumatic NOSE: Normal external nose present and Normal nasal mucous membranes and turbinates present EXTERNAL EAR: Yes external ears normal EXTERNAL AUDITORY CANAL: EAC's normal TYMPANIC MEMBRANE: TM's normal bilaterally Neck/C-Spine: COMMON NORMALS: full ROM, no lymphadenopathy, supple, no meningeal signs, no JVD, Thyroid normal and No carotid bruits THYROID: Thyroid normal Chest: COMMONS NORMALS: normal inspection of the chest, normal palpation of entire chest wall, normal inspection of the breasts and normal palpation of the breasts Breast/axilla inspection: Yes normal inspection of the breasts BREAST/AXILLA PALPATION: Yes normal palpation of the breasts Resp: COMMON NORMALS: normal respiratory effort, No retractions, No use of accessory muscles, clear to auscultation bilaterally and percussion normal AUSCULTATION: clear to auscultation bilaterally PERCUSSION: percussion normal Cardio: COMMON NORMALS: no JVD, regular rate, regular rhythm, S1 normal heart sound present, S2 normal heart sound present, No gallops present (Cardio), No clicks present (Cardio), No murmurs present (Cardio), No rub (Cardio) and Peripheral pulses 2+ throughout RATE: regular rate RHYTHM: regular rhythm HEART SOUNDS: S1 normal heart sound present and S2 normal heart sound present PERIPHERAL PULSES: Peripheral pulses 2+ throughout GI: COMMON NORMALS: Normal to inspection, nondistended, normoactive bowel sounds present, Soft to palpation, non-tender, No hepatosplenomegaly present, no masses and no bruits PALPATION: Yes Soft to palpation and Yes No hepatosplenomegaly present Back/Pelvis: COMMON NORMALS: thoracic and lumbar spine normal to inspection, no thoracic nor lumbar tenderness, thoraco-lumbar ROM normal and straight leg raise negative bilaterally Extremity: COMMON NORMALS: normal to inspection, full ROM, capillary refill normal, no joint enlargement, no clubbing, cyanosis or edema, no calf tenderness and no pedal edema Neuro: COMMON NORMALS: patient oriented x3 SENSORIUM/ORIENTATION: Yes alert MENINGEAL SIGNS: Yes no meningeal signs Course Reevaluation(s): Reevaluation #1: Negative evaluation in the emergency room for any acute findings of believe this patient most likely did have some heat exhaustion. Patient be discharged home Encourage p.o. fluids. Take medications as instructed. Follow-up with PCP in 2 to 3 days. Time: 23:53 Vital Signs: Vital signs: Vital Signs Temperature 98.4 F 09/30/20 22:20 Pulse Rate 100 09/30/20 22:20 Respiratory Rate 18 09/30/20 22:20 Blood Pressure 111/74 09/30/20 22:20 Pulse Oximetry 97 09/30/20 22:20 [facility] - General Adult Medical Records: Attestation: I reviewed the patient's medical records. Lab Data: Attestation: I reviewed the patient's lab results. Labs: Lab Results 09/30/20 09/30/20 09/30/20 Range/Units 22:32 23:03 23:03 WBC 7.0 (4.0-10.0) 10^3/ uL RBC 4.05 L (4.1-5.3) 10^6/u L Hgb 11.7 (11.5-15.3) g/dL Hct 36.5 L (37.0-47.0) % MCV 90.1 (81-99) fL MCH 28.9 (28.0-34.0) pg MCHC 32.1 (30.0-36.0) g/dL RDW 13.8 (12.1-15.1) % Plt Count 174 (130-400) 10^3/c mm MPV 9.9 (7.4-10.4) fL Neut % (Auto) 62.1 % Lymph % (Auto) 29.7 % Woodruff % (Auto) 5.6 % Eos % (Auto) 1.9 % Baso % (Auto) 0.3 % Neut # (Auto) 4.36 (1.8-7.7) 10^3/u L Lymph # (Auto) 2.1 (0.8-4.8) 10^3/u L Woodruff # (Auto) 0.4 (0.2-0.9) 10^3/u L Eos # (Auto) 0.1 (0.0-0.8) 10^3/u L Baso # (Auto) 0.0 (0.0-0.1) 10^3/u L Nucleated RBC % (a uto) 0 % Nucleated RBCs # 0.0 /100WBC Sodium 135 L (136-145) mmol/L Potassium 3.9 (3.5-5.1) mmol/L Chloride 104 (98-107) mmol/L Carbon Dioxide 20 L (22-29) mmol/L Anion Gap 14.9 (5-19) BUN 6 (6-20) mg/dL Creatinine 0.4 L (0.5-0.9) mg/dL GFR Calculation 199.6 H (90-130) mL/min Glucose 94 (65-115) mg/dL Calculated Osmolal ity 277 L (285-295) mOsm/k g Calcium 9.0 (8.5-10.5) mg/dL Total Bilirubin 0.3 (0.15-1.2) mg/dL AST 12 (0-32) U/L ALT 12 (0-33) U/L Alkaline Phosphata se 86 (35-105) IU/L Total Protein 6.4 L (6.6-8.7) g/dL Albumin 3.6 (3.5-5.2) g/dL Globulin 2.8 (1.3-4.6) g/dL Lipase 20 (13-60) U/L Urine Color Yellow (Yellow) Urine Appearance Clear (CLEAR) Urine pH 7 (5-7) Ur Specific Gravit y 1.005 (1.005-1.030) Urine Protein Neg (Negative) Urine Glucose (UA) Norm (Normal) Urine Ketones 1+ H (Negative) Urine Blood Neg (Negative) Urine Nitrate Negative (Negative) Urine Bilirubin Neg (Negative) Urine Urobilinogen Norm (Negative) mg/dL Ur Leukocyte Emily ase Negative (Negative) Discharge Plan Discharge Patient Disposition: Home Clinical Impression: Heat exhaustion Condition: Stable Prescriptions: No Action lamotrigine 25 mg tablet 25 mg PO BID RF: 0 albuterol sulfate [Proventil HFA] 90 mcg/actuation HFA aerosol inhaler 2 puff inhalation Q6H PRN (Reason: shortness of breath or wheezing) Qty: 8.5 RF: 0 promethazine 25 mg tablet 25 mg PO Q6H 30 Days Qty: 120 RF: 0 levothyroxine 175 mcg capsule 175 mcg PO DAILY Qty: 30 RF: 2 Reglan 10 mg tablet 10 mg PO Q6H PRN (Reason: nausea and vomiting) Qty: 12 RF: 0 Discharge Orders: Discharge ED (Routine); Ordered 09/30/20 Ordered By: Adolph Marx Referrals: Kasandra Ruiz [Primary Care Provider] - Discharge Diet: Advance as tolerated Discharge Activity: Resume usual activity and Increase activity as tolerated Patient Instructions: Opioid Safety Activity Restrictions/Additional Instructions: Encourage p.o. fluids. Take medications as instructed. Follow-up with PCP in 2 to 3 days. Coding Level of Care Code ED Carpenter Mate for Chg Fwd Exam Comprehensive
[2020-09-30 23:16] LABS: Basophils % 0.3 %; Eosinophils # 0.1 10^3/uL (0.0-0.8); Eosinophils % 1.9 %; Hematocrit 36.5 % (37.0-47.0); Hemoglobin 11.7 g/dL (11.5-15.3); Lymphocytes # 2.1 10^3/uL (0.8-4.8); Lymphocytes % 29.7 %; Mean Corpuscular HGB Conc 32.1 g/dL (30.0-36.0); Mean Corpuscular Hemoglobin 28.9 pg (28.0-34.0); Mean Corpuscular Volume 90.1 fL (81-99); Mean Platelet Volume 9.9 fL (7.4-10.4); Monocytes # 0.4 10^3/uL (0.2-0.9); Monocytes % 5.6 %; Neutrophils # 4.36 10^3/uL (1.8-7.7); Neutrophils % 62.1 %; Nucleated Red Blood Cells % 0 %; Platelet Count 174 10^3/cmm (130-400); Red Blood Count 4.05 10^6/uL (4.1-5.3); Red Cell Distribution Width 13.8 % (12.1-15.1)
[2020-09-30] MEDS: sodium chloride 0.9% 1,000 ML 999 ML IV (23:26)
[2020-09-30 23:28] LABS: Alanine Aminotransferase 12 U/L (0-33); Albumin Level 3.6 g/dL (3.5-5.2); Alkaline Phosphatase 86 IU/L (35-105); Anion Gap 14.9 (5-19); Aspartate Amino Transferase 12 U/L (0-32); Blood Urea Nitrogen 6 mg/dL (6-20); Carbon Dioxide 20 mmol/L (22-29); Chloride 104 mmol/L (98-107); Globulin 2.8 g/dL (1.3-4.6); Glomerular Filtration Rate 199.6 mL/min (90-130); Glucose 94 mg/dL (65-115); Lipase 20 U/L (13-60); Osmolality Calculated 277 mOsm/kg (285-295); Potassium 3.9 mmol/L (3.5-5.1); Sodium 135 mmol/L (136-145); Total Bilirubin 0.3 mg/dL (0.15-1.2); Total Protein 6.4 g/dL (6.6-8.7)
[2020-10-01 01:11] VITALS: BP 98/69; PULSE 105; RESP 17; O2SAT 99
== END 2020-10-01 01:11 | disposition home or self-care (01) ==
PROVIDERS: Physician Assistant; Emergency Provider Emergency Medicine; PCP Nurse Practitioner Family
DX: T67.5XXA Heat exhaustion, unspecified, initial encounter (principal); X30.XXXA Exposure to excessive natural heat, initial encounter
CPT/HCPCS: 80053; 81003; 83690; 85025; 96360; 99283; J7030

== ENCOUNTER 2020-10-03 19:41 | Emergency (ER) | payer MEDICAID, SELFPAY ==
[2020-10-03 19:51] VITALS: BP 113/78; PULSE 85; RESP 17; TEMP 36.9; O2SAT 97; BMI 37.1
--- NOTE | 2020-10-03 23:20 | ED_ITS ---
HPI - General Adult General: Chief complaint: General Medical Stated complaint: Over Heated\No appitite Time Seen by Provider: 10/03/20 23:17 History of Present Illness: HPI narrative: 20-year-old female comes in today for complaints of nausea and poor appetite. Patient reports 2 days ago she got overheated and came into the emergency room was given 1 L of IV fluids and then recommended to go home and make sure she continued oral intake of p.o. fluids and Pedialyte. Patient reports has been maintaining fluid consumption but has not had a return of appetite. Patient is 15 weeks . Patient reports that she has had no bleeding and has felt movement. Associated symptoms: Reports nausea Review of Systems General: Reports: 10 or more systems reviewed and unremarkable except in HPI and below GI: Reports: nausea PFSH ED PFSH: Medical History Asthma Diagnosed at the age of 11 and is controlled with as needed albuterol inhaler which is worse over allergy season and winter. Denies any intubations or hospitalizations for asthma. Borderline personality disorder Multiple psychiatric issues for which she follows up with behavioral health care and is taking Lamictal. Her provider is aware that she is . Hypothyroid Diagnosed at the age of 9 and has been on medication since then. She states that this is managed by her primary care provider. No pertinent past medical history Denies diabetes, hypertension, seizures, DVT/PE PCP: RAMSES Basilio Surgical History Hx of appendectomy 2010--laparoscopic procedure Hx of dilation and curettage 2019--done for a missed at 9 weeks Hx of vaginal surgery 10/23/2011---surgery done at [facility]--procedure performed was examination under anesthesia with reattachment of the avulsed left labia minora, repair of a name mucosa and transected anal sphincter and perineum and proctoscopy performed by OB/general surgery. Operative reports have been scanned into the computer. Family History Father Colon cancer dx age 46--- cancer began in brain and spread Diabetes Hypertension Grandmother Diabetes Paternal Thyroid disease Paternal Family/Other Ovarian cancer Paternal Aunt--dx age 32 Heart disease paternal aunt Sister Thyroid disease Brother Heart disease congenital heart disease Denies family history of Hypercholesteremia Breast cancer Uterine cancer Stroke Female Reproductive History: Date of last menstrual period: 05/29/20 Physical Exam Const: COMMON NORMALS: no acute distress and patient oriented x3 GENERAL APPEARANCE: cooperative HENMT: COMMON NORMALS: normocephalic and Normal external nose present HEAD & SCALP: normal to inspection and normocephalic NOSE: Normal external nose present MOUTH: Normal oral and palatal mucosa present Eye: GENERAL EYE: appearance normal, both eyes and all related structures Neck/C-Spine: COMMON NORMALS: full ROM Lymph: LYMPHATIC: no lymphadenopathy noted Chest: COMMONS NORMALS: normal inspection of the chest Resp: COMMON NORMALS: normal respiratory effort EFFORT & INSPECTION: Yes able to speak in complete sentences Cardio: COMMON NORMALS: regular rate and regular rhythm RATE: regular rate RHYTHM: regular rhythm GI: COMMON NORMALS: Soft to palpation and non-tender PALPATION: Yes Soft to palpation : COMMON NORMALS: Yes no CVA tenderness BLADDER/KIDNEY EXAM: Yes no CVA tenderness Back/Pelvis: COMMON NORMALS: no CVA tenderness and thoracic and lumbar spine normal to inspection Extremity: COMMON NORMALS: normal to inspection Neuro: COMMON NORMALS: patient oriented x3 and moves all extremities Psych: COMMON NORMALS: mental status grossly normal and cooperative Skin: COMMON NORMALS: no rashes or lesions noted GENERAL SKIN EXAM: no rashes or lesions noted Course Vital Signs: Vital signs: Vital Signs Temperature 98.5 F 10/03/20 19:51 Pulse Rate 104 H 10/04/20 00:29 Respiratory Rate 18 10/04/20 00:29 Blood Pressure 122/70 10/04/20 00:29 Pulse Oximetry 99 10/04/20 00:29 MDM - General Adult MDM Narrative: Medical decision making narrative: Patient came in today for concerns of poor appetite after an episode of heat related injury 2 days ago. Patient reports she has been drinking well but has not had a good appetite yet. On exam patient appears well. Lungs are clear to auscultation. Abdomen soft nontender. Vitals are normal. Patient has felt normal movement. Differential diagnosis includes dehydration, nausea related to , malingering, heat exhaustion. Reviewed exam with patient laboratory values were normal. No signs of infection or dehydration was noted. Patient was able to eat part of a sandwich in the emergency room and drink Sprite. Recommended patient continue with her oral fluids and eating a light diet until her appetite is returned. Follow-up with primary care then as needed. Return to the ER for new concerns or worsening symptoms. Patient reported understanding. Lab Data: Labs: Lab Results 10/03/20 10/03/20 10/03/20 Range/Units 23:47 23:47 23:48 WBC 6.7 (4.0-10.0) 10^3/ uL RBC 4.28 (4.1-5.3) 10^6/u L Hgb 12.2 (11.5-15.3) g/dL Hct 38.4 (37.0-47.0) % MCV 89.7 (81-99) fL MCH 28.5 (28.0-34.0) pg MCHC 31.8 (30.0-36.0) g/dL RDW 13.9 (12.1-15.1) % Plt Count 191 (130-400) 10^3/c mm MPV 10.1 (7.4-10.4) fL Neut % (Auto) 63.1 % Lymph % (Auto) 29.6 % [place] % (Auto) 5.4 % Eos % (Auto) 1.5 % Baso % (Auto) 0.1 % Neut # (Auto) 4.22 (1.8-7.7) 10^3/u L Lymph # (Auto) 2.0 (0.8-4.8) 10^3/u L [place] # (Auto) 0.4 (0.2-0.9) 10^3/u L Eos # (Auto) 0.1 (0.0-0.8) 10^3/u L Baso # (Auto) 0.0 (0.0-0.1) 10^3/u L Nucleated RBC % (a uto) 0 % Nucleated RBCs # 0.0 /100WBC Sodium 137 (136-145) mmol/L Potassium 4.0 (3.5-5.1) mmol/L Chloride 104 (98-107) mmol/L Carbon Dioxide 18 L (22-29) mmol/L Anion Gap 19.0 (5-19) BUN 5 L (6-20) mg/dL Creatinine 0.4 L (0.5-0.9) mg/dL GFR Calculation 199.6 H (90-130) mL/min Glucose 82 (65-115) mg/dL Calculated Osmolal ity 280 L (285-295) mOsm/k g Calcium 8.7 (8.5-10.5) mg/dL Total Bilirubin 0.4 (0.15-1.2) mg/dL AST 19 (0-32) U/L ALT 11 (0-33) U/L Alkaline Phosphata se 86 (35-105) IU/L Total Protein 6.7 (6.6-8.7) g/dL Albumin 3.7 (3.5-5.2) g/dL Globulin 3.0 (1.3-4.6) g/dL Urine Color Cancelled Urine Appearance Cancelled Urine pH Cancelled Ur Specific Gravit y Cancelled Urine Protein Cancelled Urine Glucose (UA) Cancelled Urine Ketones Cancelled Urine Blood Cancelled Urine Nitrate Cancelled Urine Bilirubin Cancelled Prot Sulfosalicyli c Acd Cancelled Urine Urobilinogen Cancelled Ur Leukocyte Emily ase Cancelled Urine RBC Cancelled Urine WBC Cancelled Ur Squamous Epith Cells Cancelled Ur Transition Epit h Cell Cancelled Ur Renal Epithelia l Cell Cancelled Calcium Oxalate Cr ystal Cancelled Uric Acid Crystals Cancelled Triple Phos [place] ls Cancelled Other Crystals Cancelled Amorphous Sediment Cancelled Urine Bacteria Cancelled Hyaline Casts Cancelled Fine Granular Cast s Cancelled Coarse Granular Ca sts Cancelled RBC Casts Cancelled Other Casts Cancelled Urine Mucus Cancelled Urine Trichomonas Cancelled Urine Yeast Cancelled Urine Sperm Cancelled Ur Oval Fat Bodies Cancelled 10/03/20 Range/Units 23:48 WBC (4.0-10.0) 10^3/ uL RBC (4.1-5.3) 10^6/u L Hgb (11.5-15.3) g/dL Hct (37.0-47.0) % MCV (81-99) fL MCH (28.0-34.0) pg MCHC (30.0-36.0) g/dL RDW (12.1-15.1) % Plt Count (130-400) 10^3/c mm MPV (7.4-10.4) fL Neut % (Auto) % Lymph % (Auto) % [place] % (Auto) % Eos % (Auto) % Baso % (Auto) % Neut # (Auto) (1.8-7.7) 10^3/u L Lymph # (Auto) (0.8-4.8) 10^3/u L [place] # (Auto) (0.2-0.9) 10^3/u L Eos # (Auto) (0.0-0.8) 10^3/u L Baso # (Auto) (0.0-0.1) 10^3/u L Nucleated RBC % (a uto) % Nucleated RBCs # /100WBC Sodium (136-145) mmol/L Potassium (3.5-5.1) mmol/L Chloride (98-107) mmol/L Carbon Dioxide (22-29) mmol/L Anion Gap (5-19) BUN (6-20) mg/dL Creatinine (0.5-0.9) mg/dL GFR Calculation (90-130) mL/min Glucose (65-115) mg/dL Calculated Osmolal ity (285-295) mOsm/k g Calcium (8.5-10.5) mg/dL Total Bilirubin (0.15-1.2) mg/dL AST (0-32) U/L ALT (0-33) U/L Alkaline Phosphata se (35-105) IU/L Total Protein (6.6-8.7) g/dL Albumin (3.5-5.2) g/dL Globulin (1.3-4.6) g/dL Urine Color Yellow Urine Appearance Clear Urine pH 6 Ur Specific Gravit y 1.020 Urine Protein Neg Urine Glucose (UA) Norm Urine Ketones 3+ H Urine Blood Neg Urine Nitrate Negative Urine Bilirubin 1+ H Prot Sulfosalicyli c Acd Urine Urobilinogen 1 H Ur Leukocyte Emily ase Negative Urine RBC Urine WBC Ur Squamous Epith Cells Ur Transition Epit h Cell Ur Renal Epithelia l Cell Calcium Oxalate Cr ystal Uric Acid Crystals Triple Phos [place] ls Other Crystals Amorphous Sediment Urine Bacteria Hyaline Casts Fine Granular Cast s Coarse Granular Ca sts RBC Casts Other Casts Urine Mucus Urine Trichomonas Urine Yeast Urine Sperm Ur Oval Fat Bodies Discharge Plan Discharge Patient Disposition: Home Clinical Impression: Poor appetite, Incidental Heat exhaustion Qualifiers: Encounter type: subsequent encounter Qualified Code(s): T67.5XXD - Heat exhaustion, unspecified, subsequent encounter Condition: Stable Prescriptions: No Action lamotrigine 25 mg tablet 25 mg PO BID RF: 0 albuterol sulfate [Proventil HFA] 90 mcg/actuation HFA aerosol inhaler 2 puff inhalation Q6H PRN (Reason: shortness of breath or wheezing) Qty: 8.5 RF: 0 promethazine 25 mg tablet 25 mg PO Q6H 30 Days Qty: 120 RF: 0 levothyroxine 175 mcg capsule 175 mcg PO DAILY Qty: 30 RF: 2 Reglan 10 mg tablet 10 mg PO Q6H PRN (Reason: nausea and vomiting) Qty: 12 RF: 0 Discharge Orders: Discharge ED (Routine); Ordered 10/04/20 Ordered By: Honorio Singh Referrals: Kasandra Ruiz [Primary Care Provider] - Discharge Diet: Advance as tolerated Discharge Activity: Increase activity as tolerated Patient Instructions: Morning Sickness (ED), Opioid Safety Activity Restrictions/Additional Instructions: Continue drinking plenty of fluids. Try to add some full liquids like milk shakes, ice cream, and soups or broths to help increase your appetite. Eat foods you like. Avoid the heat of the day. Follow-up with primary care or O B/JACKET PREPARER for further instruction. Return to the ER for high fever, abnormal bleeding, or new concerns. Coding Level of Care Code ED Grant Coordinator for Juana Fwd Exam Comprehensive
[2020-10-03 23:48] VITALS: BP 122/70; PULSE 96; RESP 18; O2SAT 98
[2020-10-03 23:51] LABS: Basophils % 0.1 %; Eosinophils # 0.1 10^3/uL (0.0-0.8); Eosinophils % 1.5 %; Hematocrit 38.4 % (37.0-47.0); Hemoglobin 12.2 g/dL (11.5-15.3); Lymphocytes % 29.6 %; Mean Corpuscular HGB Conc 31.8 g/dL (30.0-36.0); Mean Corpuscular Hemoglobin 28.5 pg (28.0-34.0); Mean Corpuscular Volume 89.7 fL (81-99); Mean Platelet Volume 10.1 fL (7.4-10.4); Monocytes # 0.4 10^3/uL (0.2-0.9); Monocytes % 5.4 %; Neutrophils # 4.22 10^3/uL (1.8-7.7); Neutrophils % 63.1 %; Nucleated Red Blood Cells % 0 %; Platelet Count 191 10^3/cmm (130-400); Red Blood Count 4.28 10^6/uL (4.1-5.3); Red Cell Distribution Width 13.9 % (12.1-15.1); White Blood Count 6.7 10^3/uL (4.0-10.0)
[2020-10-03] MEDS: lactated ringers 1,000 ML 999 ML IV (23:52)
[2020-10-03] MEDS: ondansetron 2 mg/ML SDV 2 mL 4 MG IVP (23:52)
[2020-10-04 00:02] LABS: Add Urine Microscopic? NO; Blood Urine Neg (Negative); Glucose Urine UA Norm (Normal); Ketones Urine 3+ (Negative); Nitrate Urine Negative (Negative); Protein Urine Neg (Negative); Urine Appearance Clear (CLEAR); Urine Color Yellow (Yellow); pH Urine 6 (5-7)
[2020-10-04 00:03] LABS: Bilirubin Urine 1+ (Negative); Charge for UA Resulting for Rev; Leukocyte Esterase Urine Negative (Negative); Urobilinogen Urine 1 mg/dL (Negative)
[2020-10-04 00:09] LABS: Albumin Level 3.7 g/dL (3.5-5.2); Alkaline Phosphatase 86 IU/L (35-105); Blood Urea Nitrogen 5 mg/dL (6-20); Calcium 8.7 mg/dL (8.5-10.5); Carbon Dioxide 18 mmol/L (22-29); Chloride 104 mmol/L (98-107); Glomerular Filtration Rate 199.6 mL/min (90-130); Glucose 82 mg/dL (65-115); Osmolality Calculated 280 mOsm/kg (285-295); Sodium 137 mmol/L (136-145); Total Bilirubin 0.4 mg/dL (0.15-1.2); Total Protein 6.7 g/dL (6.6-8.7)
[2020-10-04 00:16] LABS: Alanine Aminotransferase 11 U/L (0-33); Aspartate Amino Transferase 19 U/L (0-32)
[2020-10-04 00:29] VITALS: BP 122/70; PULSE 104; RESP 18; O2SAT 99
== END 2020-10-04 01:19 | disposition home or self-care (01) ==
PROVIDERS: Emergency Provider Nurse Practitioner Family; PCP Nurse Practitioner Family
DX: O26.899 Other specified pregnancy related conditions, unspecified trimester (principal); T67.5XXA Heat exhaustion, unspecified, initial encounter; Z3A.00 Weeks of gestation of pregnancy not specified; R63.0 Anorexia
CPT/HCPCS: 80053; 81003; 85025; 96361; 96374; 99283; J2405

== ENCOUNTER → 2020-10-08 09:43 | Outpatient (BNVA) | payer MEDICAID, SELFPAY | PROVIDERS: PCP Nurse Practitioner Family; Visit Provider Nurse Practitioner Women's Health | DX: Z34.80 Encounter for supervision of other normal pregnancy, unspecified trimester (principal) | CPT/HCPCS: 81000; 84443; 87086 ==

== ENCOUNTER 2020-10-10 14:04 | Emergency (ER) | payer MEDICAID, SELFPAY ==
[2020-10-10 14:10] VITALS: BP 101/59; PULSE 103; RESP 15; TEMP 37.2; O2SAT 97; BMI 39.4
[2020-10-10 14:23] VITALS: PULSE 103; RESP 15; O2SAT 98
--- NOTE | 2020-10-10 14:25 | ECG_ITS ---
Test Date: 2020-10-10 Pat Name: Alisa Bone Department: Room: Gender: Female [employer] Maker: : 2000 Requested By: Sarah Mojica I Order Number: [id number] Hugh MD: Salud Mercado M.D. Measurements Intervals [place] Rate: 82 P: 41 CO: 165 QRS: 24 QRSD: 89 T: 24 QT: 363 QTc: 424 Interpretive Statements SINUS RHYTHM WITH MARKED SINUS ARRHYTHMIA POSSIBLE LEFT ATRIAL ENLARGEMENT [-0.1mV P WAVE IN V1/V2] POSSIBLE RIGHT VENTRICULAR CONDUCTION DELAY [RSR (QR) IN V1/V2] No previous ECG available for comparison Electronically Signed On 10-11-2020 7:23:48 CDT by Salud Mercado M.D. [id number]
--- NOTE | 2020-10-10 14:29 | ED_ITS ---
HPI - Syncope General: Chief Complaint: Syncope Stated Complaint: near syncope/ Time Seen by Provider: 10/10/20 14:06 Source: patient Mode of arrival: EMS Limitations: no limitations History of Present Illness: HPI narrative: This is a 20-year-old female 6 para 1 6 2 weeks who presents to the emergency department after a syncopal event. She states that she was outside walking with her son for about an hour when she had a syncopal episode. She was unconscious for a few minutes according to the patient. She thinks she might have heat exhaustion as she said she has had these before but never as severe as it is right now. She feels weak. In the ambulance she was given 1 L of Plasma-Lyte and he is on her second bag of IV fluids. MD complaint: loss of consciousness Prodromal symptoms: none Witnessed: Yes - by Bystander Injuries sustained associated with event: none Associated symptoms: Deny abdominal pain, chest pain, fever(s), headache(s), lightheadedness, nausea, short of breath, vertigo or weakness Treatments prior to arrival: IV fluids Review of Systems General: Reports: 10 or more systems reviewed and unremarkable except in HPI and below Const: Denies: fever(s) Card: Denies: chest pain or lightheadedness GI: Denies: abdominal pain or nausea Neuro: Denies: headache(s) or vertigo PFS ED PFSH: Medical History Asthma Diagnosed at the age of 11 and is controlled with as needed albuterol inhaler which is worse over allergy season and winter. Denies any intubations or hospitalizations for asthma. Borderline personality disorder Multiple psychiatric issues for which she follows up with behavioral health care and is taking Lamictal. Her provider is aware that she is . Hypothyroid Diagnosed at the age of 9 and has been on medication since then. She states that this is managed by her primary care provider. No pertinent past medical history Denies diabetes, hypertension, seizures, DVT/PE PCP: RAMSES Basilio Surgical History Hx of appendectomy 2010--laparoscopic procedure Hx of dilation and curettage 2019--done for a missed at 9 weeks Hx of vaginal surgery 10/23/2011---surgery done at [facility]--procedure performed was examination under anesthesia with reattachment of the avulsed left labia minora, repair of a name mucosa and transected anal sphincter and perineum and proctoscopy performed by OB/general surgery. Operative reports have been scanned into the computer. Family History Father Colon cancer dx age 46--- cancer began in brain and spread Diabetes Hypertension Grandmother Diabetes Paternal Thyroid disease Paternal Family/Other Ovarian cancer Paternal Aunt--dx age 32 Heart disease paternal aunt Sister Thyroid disease Brother Heart disease congenital heart disease Denies family history of Hypercholesteremia Breast cancer Uterine cancer Stroke Female Reproductive History: Date of last menstrual period: 05/29/20 Physical Exam Const: COMMON NORMALS: no acute distress, average body habitus, patient oriented x3, no limitations, healthy appearing, alert and well nourished HENMT: COMMON NORMALS: normocephalic, atraumatic and moist oral mucous membranes HEAD & SCALP: normocephalic and atraumatic Neck/C-Spine: COMMON NORMALS: full ROM, supple, no meningeal signs, no JVD and No carotid bruits Resp: COMMON NORMALS: normal respiratory effort, No retractions, No use of accessory muscles, clear to auscultation bilaterally and percussion normal AUSCULTATION: clear to auscultation bilaterally PERCUSSION: percussion normal Cardio: COMMON NORMALS: no JVD, regular rate, regular rhythm, S1 normal heart sound present, S2 normal heart sound present, No gallops present (Cardio), No clicks present (Cardio), No murmurs present (Cardio), No rub (Cardio) and Peripheral pulses 2+ throughout RATE: regular rate RHYTHM: regular rhythm HEART SOUNDS: S1 normal heart sound present and S2 normal heart sound present PERIPHERAL PULSES: Peripheral pulses 2+ throughout GI: COMMON NORMALS: Normal to inspection, nondistended, normoactive bowel sounds present, Soft to palpation, non-tender, No hepatosplenomegaly present, no masses and no bruits PALPATION: Yes Soft to palpation and Yes No hepatosplenomegaly present Extremity: COMMON NORMALS: normal to inspection, full ROM, capillary refill normal, no calf tenderness and no pedal edema Neuro: COMMON NORMALS: patient oriented x3 SENSORIUM/ORIENTATION: Yes alert MENINGEAL SIGNS: Yes no meningeal signs Skin: COMMON NORMALS: no rashes or lesions noted, no wounds, turgor normal, no jaundice, no petechiae and no mottling GENERAL SKIN EXAM: no rashes or lesions noted and turgor normal Course Vital Signs: Vital signs: Vital Signs Temperature 99 F 10/10/20 14:10 Pulse Rate 98 10/10/20 17:03 Respiratory Rate 15 10/10/20 17:03 Blood Pressure 103/67 10/10/20 17:03 Pulse Oximetry 97 10/10/20 17:03 MDM - Syncope MDM Narrative: Medical decision making narrative: 20-year-old female patient who was out in the heat for at least an hour and had a brief syncopal episode. Evaluation in the emergency department is unremarkable and she has ketonuria. She likely has some dehydration and possible heat exhaustion. She was given IV fluids here in the emergency department in addition to that that she received from EMS. She remained stable in the emergency department and she is discharged home on conservative measures. She is advised to drink plenty of fluids. Medical Records: Attestation: I reviewed the patient's medical records. Lab Data: Labs: Lab Results 10/10/20 10/10/20 10/10/20 Range/Units 14:05 14:05 14:05 WBC 7.2 (4.0-10.0) 10^3/ uL RBC 4.33 (4.1-5.3) 10^6/u L Hgb 12.3 (11.5-15.3) g/dL Hct 37.7 (37.0-47.0) % MCV 87.1 (81-99) fL MCH 28.4 (28.0-34.0) pg MCHC 32.6 (30.0-36.0) g/dL RDW 13.9 (12.1-15.1) % Plt Count 214 (130-400) 10^3/c mm MPV 10.8 H (7.4-10.4) fL Neut % (Auto) 73.0 % Lymph % (Auto) 19.5 % [place] % (Auto) 5.4 % Eos % (Auto) 1.4 % Baso % (Auto) 0.4 % Neut # (Auto) 5.23 (1.8-7.7) 10^3/u L Lymph # (Auto) 1.4 (0.8-4.8) 10^3/u L [place] # (Auto) 0.4 (0.2-0.9) 10^3/u L Eos # (Auto) 0.1 (0.0-0.8) 10^3/u L Baso # (Auto) 0.0 (0.0-0.1) 10^3/u L Nucleated RBC % (a uto) 0 % Nucleated RBCs # 0.0 /100WBC Sodium 139 (136-145) mmol/L Potassium 4.0 (3.5-5.1) mmol/L Chloride 106 (98-107) mmol/L Carbon Dioxide 16 L (22-29) mmol/L Anion Gap 21.0 H (5-19) BUN 5 L (6-20) mg/dL Creatinine 0.5 (0.5-0.9) mg/dL GFR Calculation 154.3 H (90-130) mL/min Glucose 90 (65-115) mg/dL Calculated Osmolal ity 285 (285-295) mOsm/k g Lactate (0.5-2.2) mmol/L Calcium 9.4 (8.5-10.5) mg/dL Total Bilirubin 0.4 (0.15-1.2) mg/dL AST 14 (0-32) U/L ALT 7 (0-33) U/L Alkaline Phosphata se 82 (35-105) IU/L Creatine Kinase 40 (26-192) U/L Troponin T Gen 5 n g/L 6 (0-10) ng/L C-Reactive Protein 7.6 H (0.0-4.9) mg/L Total Protein 6.6 (6.6-8.7) g/dL Albumin 4.1 (3.5-5.2) g/dL Globulin 2.5 (1.3-4.6) g/dL Urine Color (Yellow) Urine Appearance (CLEAR) Urine pH (5-7) Ur Specific Gravit y (1.005-1.030) Urine Protein (Negative) Urine Glucose (UA) (Normal) Urine Ketones (Negative) Urine Blood (Negative) Urine Nitrate (Negative) Urine Bilirubin (Negative) Prot Sulfosalicyli c Acd (Negative) Urine Urobilinogen (Negative) mg/dL Ur Leukocyte Emily ase (Negative) Urine RBC (0-2) /hpf Urine WBC (0-5) /hpf Ur Squamous Epith Cells (0-5) /hpf Amorphous Sediment Urine Bacteria (NONE) /hpf 10/10/20 10/10/20 Range/Units 14:41 15:04 WBC (4.0-10.0) 10^3/ uL RBC (4.1-5.3) 10^6/u L Hgb (11.5-15.3) g/dL Hct (37.0-47.0) % MCV (81-99) fL MCH (28.0-34.0) pg MCHC (30.0-36.0) g/dL RDW (12.1-15.1) % Plt Count (130-400) 10^3/c mm MPV (7.4-10.4) fL Neut % (Auto) % Lymph % (Auto) % [place] % (Auto) % Eos % (Auto) % Baso % (Auto) % Neut # (Auto) (1.8-7.7) 10^3/u L Lymph # (Auto) (0.8-4.8) 10^3/u L [place] # (Auto) (0.2-0.9) 10^3/u L Eos # (Auto) (0.0-0.8) 10^3/u L Baso # (Auto) (0.0-0.1) 10^3/u L Nucleated RBC % (a uto) % Nucleated RBCs # /100WBC Sodium (136-145) mmol/L Potassium (3.5-5.1) mmol/L Chloride (98-107) mmol/L Carbon Dioxide (22-29) mmol/L Anion Gap (5-19) BUN (6-20) mg/dL Creatinine (0.5-0.9) mg/dL GFR Calculation (90-130) mL/min Glucose (65-115) mg/dL Calculated Osmolal ity (285-295) mOsm/k g Lactate 0.8 (0.5-2.2) mmol/L Calcium (8.5-10.5) mg/dL Total Bilirubin (0.15-1.2) mg/dL AST (0-32) U/L ALT (0-33) U/L Alkaline Phosphata se (35-105) IU/L Creatine Kinase (26-192) U/L Troponin T Gen 5 n g/L (0-10) ng/L C-Reactive Protein (0.0-4.9) mg/L Total Protein (6.6-8.7) g/dL Albumin (3.5-5.2) g/dL Globulin (1.3-4.6) g/dL Urine Color Yellow (Yellow) Urine Appearance Hazy A (CLEAR) Urine pH 8 H (5-7) Ur Specific Gravit y 1.010 (1.005-1.030) Urine Protein Neg (Negative) Urine Glucose (UA) Norm (Normal) Urine Ketones 2+ H (Negative) Urine Blood Neg (Negative) Urine Nitrate Negative (Negative) Urine Bilirubin Neg (Negative) Prot Sulfosalicyli c Acd Negative (Negative) Urine Urobilinogen Norm (Negative) mg/dL Ur Leukocyte Emily ase Negative (Negative) Urine RBC Rare (0-2) /hpf Urine WBC Rare (0-5) /hpf Ur Squamous Epith Cells 0-4 H (0-5) /hpf Amorphous Sediment Not Reportable Urine Bacteria 1+ H (NONE) /hpf EKG Data^: EKG 1: Attestation: I personally reviewed and interpreted this EKG as follows: EKG interpretation date: 10/10/20 EKG interpretation time: 14:34 Prior EKG tracings: not available for review Interpretation: Sinus rhythm. Heart rate 82 bpm. Right ventricular conduction delay. No ST changes. Discharge Plan Discharge Patient Disposition: Home Clinical Impression: Heat exhaustion Qualifiers: Encounter type: initial encounter Qualified Code(s): T67.5XXA - Heat exhaustion, unspecified, initial encounter Condition: Stable Prescriptions: Continued lamotrigine 25 mg tablet 25 mg PO BID RF: 0 Gummies 400 mcg-35 mg- 25 mg-5 mg tablet,chewable PO RF: 0 albuterol sulfate [Proventil HFA] 90 mcg/actuation HFA aerosol inhaler 2 puff inhalation Q6H PRN (Reason: shortness of breath or wheezing) Qty: 8.5 RF: 0 promethazine 25 mg tablet 25 mg PO Q6H 30 Days Qty: 120 RF: 0 levothyroxine 175 mcg capsule 175 mcg PO DAILY Qty: 30 RF: 2 Reglan 10 mg tablet 10 mg PO Q6H PRN (Reason: nausea and vomiting) Qty: 12 RF: 0 Discharge Orders: Discharge ED (Routine); Ordered 10/10/20 Ordered By: Sarah Mojica Referrals: Kasandra Ruiz [Primary Care Provider] - 1-3 days Discharge Diet: Usual diet Discharge Activity: Increase activity as tolerated Patient Instructions: Heat Exhaustion (ED) Activity Restrictions/Additional Instructions: Return for any new or worsening symptoms. Follow-up with your primary care provider within 3 days. Drink plenty of fluids to keep well-hydrated. Whenever you and his son try to get some shade like a cap or an umbrella. Coding Level of Care Code ED Transmitter Engineer In Charge for Juana James
[2020-10-10 14:36] LABS: Basophils % 0.4 %; Eosinophils # 0.1 10^3/uL (0.0-0.8); Eosinophils % 1.4 %; Hematocrit 37.7 % (37.0-47.0); Hemoglobin 12.3 g/dL (11.5-15.3); Lymphocytes # 1.4 10^3/uL (0.8-4.8); Lymphocytes % 19.5 %; Mean Corpuscular HGB Conc 32.6 g/dL (30.0-36.0); Mean Corpuscular Hemoglobin 28.4 pg (28.0-34.0); Mean Corpuscular Volume 87.1 fL (81-99); Mean Platelet Volume 10.8 fL (7.4-10.4); Monocytes # 0.4 10^3/uL (0.2-0.9); Monocytes % 5.4 %; Neutrophils # 5.23 10^3/uL (1.8-7.7); Nucleated Red Blood Cells % 0 %; Platelet Count 214 10^3/cmm (130-400); Red Blood Count 4.33 10^6/uL (4.1-5.3); Red Cell Distribution Width 13.9 % (12.1-15.1); White Blood Count 7.2 10^3/uL (4.0-10.0)
[2020-10-10 14:49] LABS: Alanine Aminotransferase 7 U/L (0-33); Albumin Level 4.1 g/dL (3.5-5.2); Alkaline Phosphatase 82 IU/L (35-105); Blood Urea Nitrogen 5 mg/dL (6-20); C Reactive Protein 7.6 mg/L (0.0-4.9); Calcium 9.4 mg/dL (8.5-10.5); Carbon Dioxide 16 mmol/L (22-29); Chloride 106 mmol/L (98-107); Creatine Phosphokinase 40 U/L (26-192); Globulin 2.5 g/dL (1.3-4.6); Glomerular Filtration Rate 154.3 mL/min (90-130); Glucose 90 mg/dL (65-115); Osmolality Calculated 285 mOsm/kg (285-295); Sodium 139 mmol/L (136-145); Total Bilirubin 0.4 mg/dL (0.15-1.2); Total Protein 6.6 g/dL (6.6-8.7)
[2020-10-10 14:51] LABS: Aspartate Amino Transferase 14 U/L (0-32); Troponin T (5th) Once 6 ng/L (0-10)
[2020-10-10 15:09] LABS: Lactate (Lactic Acid level) 0.8 mmol/L (0.5-2.2)
[2020-10-10 15:27] LABS: Add Urine Microscopic? YES; Bilirubin Urine Neg (Negative); Blood Urine Neg (Negative); Glucose Urine UA Norm (Normal); Ketones Urine 2+ (Negative); Leukocyte Esterase Urine Negative (Negative); Nitrate Urine Negative (Negative); Protein Urine Neg (Negative); Sulfosalicylic Acid Urine Negative (Negative); Urine Appearance Hazy (CLEAR); Urine Color Yellow (Yellow); Urobilinogen Urine Norm (Negative); pH Urine 8 (5-7)
[2020-10-10 15:48] LABS: Add Urine Culture? No; Bacteria Urine 1+ /hpf; RBC Urine RARE /hpf (0-2); Squamous Epithelial Cell Urine 0-4 /hpf (0-5); WBC Urine RARE /hpf (0-5)
[2020-10-10 17:03] VITALS: BP 103/67; PULSE 98; RESP 15; O2SAT 97
== END 2020-10-10 16:42 | disposition home or self-care (01) ==
PROVIDERS: Emergency Provider Family Medicine; PCP Nurse Practitioner Family
DX: T67.5XXA Heat exhaustion, unspecified, initial encounter (principal); X30.XXXA Exposure to excessive natural heat, initial encounter
CPT/HCPCS: 80053; 81001; 82550; 83605; 84484; 85025; 86140; 93005; 99283

== ENCOUNTER → 2020-11-10 14:34 | Outpatient (BNVA) | payer MEDICAID, SELFPAY | PROVIDERS: PCP Nurse Practitioner Family; Visit Provider Obstetrics & Gynecology | DX: Z34.80 Encounter for supervision of other normal pregnancy, unspecified trimester | CPT/HCPCS: 81000 ==

== ENCOUNTER → 2020-12-01 07:36 | Outpatient (BNVA) | payer OTHER, MEDICAID, SELFPAY | PROVIDERS: PCP Nurse Practitioner Family; Visit Provider Psychiatry & Neurology Psychiatry | DX: F60.3 Borderline personality disorder (principal); F33.2 Major depressive disorder, recurrent severe without psychotic features; F43.12 Post-traumatic stress disorder, chronic | CPT/HCPCS: 99214 ==

== ENCOUNTER 2020-12-11 11:10 | Outpatient (CLI) | payer OTHER, MEDICAID, SELFPAY ==
[2020-12-11] VITALS (11 sets, daily range): BP systolic 107–125; BP diastolic 55–72; PULSE 90–109; RESP 17; TEMP 36.3
--- NOTE | 2020-12-11 12:18 | US_ITS ---
WS: [id number] LIMITED OBSTETRICAL ULTRASOUND HISTORY: Decreased movement COMPARISON: 11/24/2020, 11/04/2020 and 09/03/2020 Presentation: Breech. Cervix: Closed and normal length. Placenta: Posterior and fundal. Grade: 1 HEART: FHR of 141 BPM. measurements: BPD = 6.3 cm = 25w3d HC = 23.5 cm = 25w3d AC = 20.9 cm = 25w3d FL = 4.7 cm = 25w3d EMILY: 15.9 cm EFW: 814 g; 53 %. AGA by ultrasound: 25w3d NORIS by ultrasound: 03/23/2021 Appropriate growth since the first trimester ultrasound. No growth asymmetry. US/ OB limited [id number] IMPRESSION: 1. Single intrauterine gestation of 25 weeks 3 days with an EDC of 03/23/2021. Appropriate growth since the first trimester ultrasound. 2. Normal cardiac activity and normal movement. 3. Normal amniotic fluid.
== END 2020-12-11 13:05 | disposition home or self-care (01) ==
LOC: OPOB 11:12 → OBGYN 11:14
PROVIDERS: PCP Nurse Practitioner Family; Visit Provider Obstetrics & Gynecology
DX: O36.8190 Decreased fetal movements, unspecified trimester, not applicable or unspecified (principal); Z3A.00 Weeks of gestation of pregnancy not specified
CPT/HCPCS: 76815; 81000; 84443; 99211

== ENCOUNTER → 2020-12-24 15:00 | Outpatient (BNVA) | payer MEDICAID, SELFPAY | PROVIDERS: PCP Nurse Practitioner Family; Visit Provider Obstetrics & Gynecology | DX: Z34.80 Encounter for supervision of other normal pregnancy, unspecified trimester (principal) | CPT/HCPCS: 81000; 82950; 84443; 85027 ==

== ENCOUNTER 2021-01-09 02:07 | Outpatient (CLI) | payer MEDICAID, SELFPAY ==
[2021-01-09 01:59] VITALS: BMI 39.1
[2021-01-09 02:16] VITALS: RESP 15; TEMP 36.7
[2021-01-09 02:17] VITALS: BP 118/58; PULSE 118
[2021-01-09 02:33] VITALS: BP 109/55; PULSE 109
[2021-01-09 02:38] LABS: Nitrazine Paper, PH Inconclusive
[2021-01-09 02:48] VITALS: BP 105/54; PULSE 108
[2021-01-09 02:53] LABS: Actim Prom Negative
[2021-01-09 03:06] VITALS: BP 105/54; PULSE 108; RESP 15; TEMP 36.3
== END 2021-01-09 03:06 | disposition home or self-care (01) ==
LOC: OPOB 02:08 → OBGYN 02:09
PROVIDERS: PCP Nurse Practitioner Family; Visit Provider Obstetrics & Gynecology
DX: O26.899 Other specified pregnancy related conditions, unspecified trimester (principal); Z3A.00 Weeks of gestation of pregnancy not specified; N89.8 Other specified noninflammatory disorders of vagina
CPT/HCPCS: 59025; 83986; 84112; 99211

== ENCOUNTER 2021-01-11 15:40 | Outpatient (CLI) | payer MEDICAID, SELFPAY ==
[2021-01-11] VITALS (9 sets, daily range): BP systolic 103–133; BP diastolic 54–65; PULSE 92–114; BMI 39.1
[2021-01-11 16:36] LABS: Actim Prom Negative
[2021-01-11] MEDS: hyDROXYzine 25 mg Capsule 50 MG PO (17:08)
[2021-01-11 17:39] LABS: Bilirubin Urine Neg (Negative); Blood Urine Neg (Negative); Glucose Urine UA Norm (Normal); Ketones Urine Negative (Negative); Leukocyte Esterase Urine Negative (Negative); Nitrate Urine Negative (Negative); Protein Urine Neg (Negative); Specific Gravity, Urine 1.015 (1.005-1.030); Urine Appearance Clear (CLEAR); Urine Color Yellow (Yellow); Urobilinogen Urine Norm (Negative); pH Urine 9 (5-7)
[2021-01-11 17:41] LABS: Sulfosalicylic Acid Urine Negative (Negative)
[2021-01-11 17:42] LABS: Bacteria Urine 1+ /hpf; Squamous Epithelial Cell Urine 0-4 /hpf (0-5)
[2021-01-11 17:43] LABS: Add Urine Culture? No
--- NOTE | 2021-01-11 18:13 | PC.NURSE ---
Pt prescribed macrobid 100mg [id number] #14 no refills. Voicemail left on [employer] machine at [phone].
[2021-01-11] MEDS: phenazopyridine 100 mg Tablet 200 MG PO (18:22)
[2021-01-11] MEDS: nitrofurantoin SR (BID) 100 mg Capsule PO (18:22)
== END 2021-01-11 18:40 | disposition home or self-care (01) ==
LOC: OPOB 15:46 → OBGYN 15:47
PROVIDERS: PCP Nurse Practitioner Family; Visit Provider Obstetrics & Gynecology
DX: O26.899 Other specified pregnancy related conditions, unspecified trimester (principal); Z3A.00 Weeks of gestation of pregnancy not specified; R10.9 Unspecified abdominal pain; N89.8 Other specified noninflammatory disorders of vagina
CPT/HCPCS: 59025; 81001; 84112; 99211

== ENCOUNTER → 2021-01-14 08:05 | Outpatient (BNVA) | payer OTHER, MEDICAID, SELFPAY | PROVIDERS: PCP Nurse Practitioner Family; Visit Provider Obstetrics & Gynecology | DX: Z34.80 Encounter for supervision of other normal pregnancy, unspecified trimester (principal) | CPT/HCPCS: 81000 ==

== ENCOUNTER → 2021-01-26 11:11 | Outpatient (BNVA) | payer OTHER, MEDICAID, SELFPAY | PROVIDERS: PCP Nurse Practitioner Family; Visit Provider Obstetrics & Gynecology | DX: Z34.90 Encounter for supervision of normal pregnancy, unspecified, unspecified trimester (principal) | CPT/HCPCS: 84315; 84443 ==

== ENCOUNTER → 2021-02-10 08:25 | Outpatient (BNVA) | payer OTHER, MEDICAID, SELFPAY | PROVIDERS: PCP Nurse Practitioner Family; Visit Provider Psychiatry & Neurology Psychiatry | DX: F33.2 Major depressive disorder, recurrent severe without psychotic features (principal); F43.12 Post-traumatic stress disorder, chronic; F60.3 Borderline personality disorder | CPT/HCPCS: 99213 ==

== ENCOUNTER 2021-02-13 20:59 | Outpatient (CLI) | payer OTHER, MEDICAID, SELFPAY ==
[2021-02-13 20:55] VITALS: BMI 39.4
[2021-02-13 21:04] VITALS: TEMP 35.7
[2021-02-13 21:05] VITALS: BP 134/71; PULSE 108
[2021-02-13 21:20] VITALS: RESP 16
[2021-02-13 21:54] VITALS: BP 116/68; PULSE 121; RESP 18; TEMP 37.2
[2021-02-13] MEDS: hyDROXYzine 25 mg Capsule 50 MG PO (22:03)
[2021-02-13] MEDS: famotidine 20 mg Tablet PO (22:03)
[2021-02-13 22:28] VITALS: BP 116/68; PULSE 121; RESP 18; TEMP 37.2
== END 2021-02-13 22:41 | disposition home or self-care (01) ==
LOC: OPOB 21:01 → OBGYN 21:03
PROVIDERS: PCP Nurse Practitioner Family; Visit Provider Obstetrics & Gynecology
DX: O47.9 False labor, unspecified (principal)
CPT/HCPCS: 59025; 99211

== ENCOUNTER → 2021-02-25 11:26 | Outpatient (BNVA) | payer MEDICAID, SELFPAY | PROVIDERS: PCP Nurse Practitioner Family; Visit Provider Obstetrics & Gynecology | DX: Z34.80 Encounter for supervision of other normal pregnancy, unspecified trimester (principal) | CPT/HCPCS: 81000; 84443; 87081 ==

== ENCOUNTER 2021-03-14 19:42 | Outpatient (CLI) | payer MEDICAID, SELFPAY ==
[2021-03-14] VITALS (19 sets, daily range): BP systolic 117–118; BP diastolic 69–72; PULSE 101–127; RESP 18; TEMP 35.9–36; O2SAT 99–100; BMI 41.5
[2021-03-14 20:16] LABS: Actim Prom Negative
[2021-03-14] MEDS: acetaminophen 325 mg Tablet 650 MG PO (20:46)
[2021-03-14 20:56] LABS: Add Urine Microscopic? YES; Bilirubin Urine Neg (Negative); Blood Urine Neg (Negative); Glucose Urine UA Norm (Normal); Ketones Urine Negative (Negative); Leukocyte Esterase Urine Negative (Negative); Nitrate Urine Negative (Negative); Protein Urine Neg (Negative); Specific Gravity, Urine 1.015 (1.005-1.030); Urine Color Yellow (Yellow); Urobilinogen Urine Norm (Negative); pH Urine 6.5 (5-7)
[2021-03-14 20:57] LABS: Add Urine Culture? No; Amorphous Sediment Urine 3+ /hpf; Bacteria Urine TRACE /hpf; RBC Urine 0-4 /hpf (0-2); Squamous Epithelial Cell Urine 0-4 /hpf (0-5); WBC Urine 0-4 /hpf (0-5)
--- NOTE | 2021-03-14 21:00 | P.PCN_ITS ---
Procedure/Consent Procedure Narrative: NONSTRESS TEST: Place of test: [facility] [place]-L&D Indication: 21-year-old 6 para 2-0-3-2 at 38 weeks and 5 days, back pain, contractions and decreased movement Date and time of test: 9 PM on 03/14/2021 Baseline: 135 Variability: Moderate variability Accelerations: Accelerations present Decelerations: No decelerations Tocometry: Irregular contractions INTERPRETATION: NST reactive, continue kick counts
== END 2021-03-14 22:40 | disposition home or self-care (01) ==
LOC: OPOB 19:48 → OBGYN 19:48
PROVIDERS: Absent Provider Obstetrics & Gynecology; PCP Nurse Practitioner Family; Visit Provider Obstetrics & Gynecology
DX: O36.8190 Decreased fetal movements, unspecified trimester, not applicable or unspecified (principal); Z3A.38 38 weeks gestation of pregnancy
CPT/HCPCS: 59025; 81001; 84112; 99211

== ENCOUNTER → 2021-03-18 09:09 | Outpatient (BNVA) | payer MEDICAID, SELFPAY | PROVIDERS: PCP Nurse Practitioner Family; Visit Provider Obstetrics & Gynecology | DX: Z34.80 Encounter for supervision of other normal pregnancy, unspecified trimester (principal); Z20.822 Contact with and (suspected) exposure to COVID-19 | CPT/HCPCS: 81000; 87635 ==

== ENCOUNTER 2021-03-21 21:00 | Inpatient (IN) | payer MEDICAID, SELFPAY ==
[2021-03-21] VITALS (50 sets, daily range): BP systolic 106–134; BP diastolic 51–82; PULSE 90–131; O2SAT 97–100
[2021-03-21 21:26] LABS: Basophils % 0.2 %; Eosinophils # 0.2 10^3/uL (0.0-0.8); Eosinophils % 1.8 %; Hematocrit 31.4 % (37.0-47.0); Hemoglobin 9.2 g/dL (11.5-15.3); Lymphocytes # 1.7 10^3/uL (0.8-4.8); Lymphocytes % 20.1 %; Mean Corpuscular HGB Conc 29.3 g/dL (30.0-36.0); Mean Corpuscular Hemoglobin 22.7 pg (28.0-34.0); Mean Corpuscular Volume 77.3 fl (81-99); Monocytes # 0.6 10^3/uL (0.2-0.9); Neutrophils # 5.88 10^3/uL (1.8-7.7); Neutrophils % 69.8 %; Nucleated Red Blood Cells % 0.5 %; Platelet Count 237 10^3/cmm (130-400); Red Blood Count 4.06 10^6/uL (4.1-5.3); Red Cell Distribution Width 17.9 % (12.1-15.1); White Blood Count 8.4 10^3/uL (4.0-10.0)
[2021-03-21] MEDS: dextrose 5%-lactated ringers 1,000 ML 125 ML IV (21:27)
[2021-03-21] MEDS: hyDROXYzine 25 mg Capsule PO (21:27)
[2021-03-21 21:40] LABS: Albumin Level 3.1 g/dL (3.5-5.2); Alkaline Phosphatase 177 IU/L (35-105); Aspartate Amino Transferase 12 U/L (0-32); Blood Urea Nitrogen 5 mg/dL (6-20); Calcium 8.1 mg/dL (8.5-10.5); Carbon Dioxide 17 mmol/L (22-29); Chloride 106 mmol/L (98-107); Globulin 2.8 g/dL (1.3-4.6); Glomerular Filtration Rate 152.9 mL/min (90-130); Glucose 144 mg/dL (65-115); Osmolality Calculated 282 mOsm/kg (285-295); Sodium 136 mmol/L (136-145); Total Bilirubin 0.3 mg/dL (0.15-1.2); Total Protein 5.9 g/dL (6.6-8.7)
[2021-03-21 21:51] LABS: Alanine Aminotransferase 6 U/L (0-33)
[2021-03-21] MEDS: miSOPROStol 100 mcg tablet 25 MCG VAGINAL (22:00)
[2021-03-22] VITALS (84 sets, daily range): BP systolic 93–161; BP diastolic 52–120; PULSE 78–123; RESP 17; TEMP 36.7–37.1; O2SAT 90–100
[2021-03-22] MEDS: lactated ringers 1,000 ML 999 ML IV ×2 (01:35)
--- NOTE | 2021-03-22 01:47 | P.ANESASSM_ITS ---
Pre-Anesthetic Assessment Pre-Anesthetic Assessment: Height/Weight: Height 1.63 m Pulse BP Pulse Ox 96 120/70 100 03/22/21 01:43 03/22/21 01:41 03/22/21 01:43 Preop Diagnosis: Active Labor Was Beta Bren taken within 24 hours: N/A Was Clonidine taken within 24 hours: N/A Last intake: 03/21/21 food 2100 clear liquids currently Exam: Pre-Anes Outpt Exam: alert, oriented x 3, clear to auscultation bilaterally and regular rate & rhythm Airway: Submandibular: WNL Cervical ROM: WNL MP: 2 Dentition: Full History/ROS: No significant history except as noted Pulmonary: Pulmonary: Asthma CV/HEM: CV/HEM: None reported : : None reported Hepatic: Hepatic: None reported GI: GI: None reported Metabolic: Metabolic: Thyroid Musc/skel: Musc/skel: None reported Neuropsych: Neuropsych: Depression Comments: borderline personality disorder Anesthetic Plan: ASA status: 2 Anesthesia: Regional (specify below) Meds/Allergies Current Medications: Current Medications Generic Name Dose Route Start Last Admin Trade Name Freq PRN Reason Stop Dose Admin Dextrose/Lactated Ringer's 1,000 mls @ 125 m ls/hr 03/21/21 21:08 03/21/21 21:27 Dextrose 5%-Lact ated Ringers IV 125 mls/hr .Q8H PRN Administration per label comment s PFSH Anesthesia PFSH: Medical History (Updated 03/21/21 @ 13:55 by Gianfranco Villela MD) Asthma Diagnosed at the age of 11 and is controlled with as needed albuterol inhaler which is worse over allergy season and winter. Denies any intubations or hospitalizations for asthma. Borderline personality disorder Multiple psychiatric issues for which she follows up with behavioral health care and is taking Lamictal. Her provider is aware that she is . Hypothyroid Diagnosed at the age of 9 and has been on medication since then. She states that this is managed by her primary care provider. No pertinent past medical history Denies diabetes, hypertension, seizures, DVT/PE PCP: RAMSES Basilio Surgical History Hx of appendectomy 2010--laparoscopic procedure Hx of dilation and curettage 2019--done for a missed at 9 weeks Hx of vaginal surgery 10/23/2011---surgery done at [facility]--procedure performed was examination under anesthesia with reattachment of the avulsed left labia minora, repair of a name mucosa and transected anal sphincter and perineum and proctoscopy performed by OB/general surgery. Operative reports have been scanned into the computer. Family History Father Colon cancer dx age 46--- cancer began in brain and spread Diabetes Hypertension Grandmother Diabetes Paternal Thyroid disease Paternal Family/Other Ovarian cancer Paternal Aunt--dx age 32 Heart disease paternal aunt Sister Thyroid disease Brother Heart disease congenital heart disease Denies family history of Hypercholesteremia Breast cancer Uterine cancer Stroke Female Reproductive History: Date of last menstrual period: 05/29/20 : 6 Data Anesthesia CBC & Chem 7: 03/21/21 21:09 03/21/21 21:09 Other Labs: Laboratory Results - last 48 hr 03/21/21 03/21/21 21:09 21:09 WBC 8.4 RBC 4.06 L Hgb 9.2 L Hct 31.4 L MCV 77.3 L MCH 22.7 L MCHC 29.3 L RDW 17.9 H Plt Count 237 MPV 10.0 Neut % (Auto) 69.8 Lymph % (Auto) 20.1 [place] % (Auto) 7.0 Eos % (Auto) 1.8 Baso % (Auto) 0.2 Neut # (Auto) 5.88 Lymph # (Auto) 1.7 [place] # (Auto) 0.6 Eos # (Auto) 0.2 Baso # (Auto) 0.0 Nucleated RBC % (auto) 0.5 Nucleated RBCs # 0.0 Sodium 136 Potassium 4.0 Chloride 106 Carbon Dioxide 17 L Anion Gap 17.0 BUN 5 L Creatinine 0.5 GFR Calculation 152.9 H Glucose 144 H Calculated Osmolality 282 L Calcium 8.1 L Total Bilirubin 0.3 AST 12 ALT 6 Alkaline Phosphatase 177 H Total Protein 5.9 L Albumin 3.1 L Globulin 2.8 Cardiac Studies: No Data to Display
--- NOTE | 2021-03-22 01:52 | ANES.PROC ---
Anesthesia Procedures Procedure/Date: 03/22/21 Epidural: Time Out Performed: Yes Consents Signed: Procedure Consent Consent: from patient Lumbar Level: L3-L4 Epidural position: sitting Epidural procedure: sterile prep of area, 1% lidocaine to numb the area, negative for paresthesia passed, test dose given, 1.5% xylocaine 1:200k epi, placed PCEA, no systemic response, sterile dressing applied, L.U.D. no apparent complications and 0.2% Ropiavacaine @ mls/hr (11ml/hr) Additional Comments: RAFFI 8cm 3 attempts made, catheter threaded to 15cm. remaining 2% lidocaine given via epidural PCEA placed at 11 ml/hr
[2021-03-22] MEDS: dextrose 5%-lactated ringers 1,000 ML 125 ML IV (02:35)
[2021-03-22] MEDS: oxytocin 30 UNIT/500 ML BAG 600 UNIT IV (03:45)
--- NOTE | 2021-03-22 04:04 | PM.OPHPUD ---
Labor & Delivery H&P Update Date of Procedure: March 22, 2021 Date H&P Performed: 03/18/21 H&P update information: I have reviewed H&P completed within last 30 days, I have examined patient prior to procedure and Changes to prior documentation as noted here Changes to previous documentation: Patient is in labor Admission Diagnosis: Preop diagnosis: Induction of labor
--- NOTE | 2021-03-22 04:05 | P.PCNOB_ITS ---
Delivery Note: Date of delivery: March 22, 2021 - PRE-DELIVERY DIAGNOSIS: 21-year-old 6 para 2-0-3-2 at 39 weeks and 5 days gestation Elective induction of labor GBS negative Anemia on iron Hypothyroidism on medication Depression on Zoloft Asthma-mild POST-DELIVERY DIAGNOSIS: Vaginal delivery on 03/22/2021 Anemia on iron Hypothyroidism on levothyroxine Depression on Zoloft PROCEDURE: Vaginal delivery on 03/22/2021 ANESTHESIA: Epidural anesthesia DELIVERING PHYSICIAN: Gianfranco Harrison FACRICKY PRE-DELIVERY COURSE: Ms. Bone is a 21-year-old 6 para 2-0-3-2 at 39 weeks and 5 days who presented to labor and delivery at 9 PM for scheduled induction of labor- elective. course was complicated by hypothyroidism controlled on medication and anemia on iron. She also had anxiety and depression managed by [facility] and was on Zoloft. A lot of social issues during the and had considered adoption but most recently on 03/18/2021 was considering power of staff attorney. ----> When she presented for scheduled induction of labor at 9 PM her cervix was unchanged from the clinic at 2 cm 50% and -3 station. She initiated category 1 tracing and a spontaneous deceleration resolved with position changes. She was observed for an hour and had a category 1 tracing. Induction was started at 10 PM with Cytotec x1 vaginally. After about 2 hours when patient was on the monitor patient had occasional variable decelerations which resolved with position change. After this patient started to grow uncomfortable and epidural was placed after which she was 4 cm 50% and -2 station. She was comfortable after the epidural and tracing was category 1. She made rapid cervical change after this and she was 5 cm and 2 AM and at 3:15 AM was 7 cm. She was fully dilated at 3:24 AM. tracing was category 1 DELIVERY NOTE: She was set up in lithotomy position. Patient had spontaneous rupture of m embranes and immediately after this the head delivered in JATINDER position, no nuchal cord was present. The shoulders and rest of the body followed with her next push. The baby's mouth and nose were suctioned and the baby was placed on the mother's belly. Once cord pulsations stopped the cord was clamped and cut. The placenta delivered spontaneously intact with membranes and was discarded. The fundus was noted to be firm and well contracted. The vagina and cervix were inspected and no cervical or sulcal lacerations were noted. The perineum was noted to be intact Baby girl, Penny born at 3:41 AM on March 22, 2023 with 8/9, weighing 7 pounds 3 ounces, 30 to 60 g, 20 inches long. Placenta was delivered spontaneously intact with membranes at 3:45 AM. Cotyledons were intact , centrally inserted umbilical cord with 3 vessels noted. Estimated blood loss 200 mL. Complications-none, both baby and mother were left to recover in a stable condition This documentation was created by [employer] entertainment manager software (known for inherent entertainment manager error). Every effort was made to assure accuracy of entertainment manager. Any obvious errors or omissions should be clarified with the author of the document. History History History 6 Term 3 Miscarriages/Ectopic 3 0 Living Children 3 Other History: 4, Para 3033 x 3 SAB x 3 1--> 02/20/2017, male, (Julian) 7lbs 8oz, full-term vaginal delivery, no complications with or delivery, delivered in [place] 2--> 03/2017 SAB at 9 weeks, no D&C required 3--> 06/2017, SAB at 4-5, no D&C required 4--> 04/04/2018, female, (Osorio) 8lbs 4oz, full-term vaginal delviery, complicated by hypoglycemia and hypertension, no complications with delivery, delivered at [facility] in [place], [place]. 5---> 10/2019 SAB at 11 weeks gestation, D&C 6--> 03/22/2021, female(Penny) weighing 7 pounds 3 ounces, full-term vaginal delivery at 39 weeks and 6 days, induction of [id number] induction. Del[place] by Dr. Harrison [place] [facility] [place] Intact perineum. Coding Level of Care Code Acute Fast Food Crew Lead for Juana James
--- NOTE | 2021-03-22 06:38 | PC.NURSE ---
Mother reports that her 4 year old son lives with her and she has full custody but that she is in a custody marie over her 3 year old daughter with the child's father.
--- NOTE | 2021-03-22 06:39 | PC.NURSE ---
Mother reports that she will not be taking the baby home with her after discharge. Mother reports that FOB and paternal grandmother will take the baby home with them. Upon further discussion mother states we [her and FOB] are in a good place right now and that she will be able to see the baby whenever I want and we will do 50/50 custody once I get things settled at home with my other kids.
--- NOTE | 2021-03-22 08:03 | ANE.PACU2 ---
Inpatient post-anesthesia follow up: Airway intact: Yes Vital signs: Temperature 98.2 F Pulse Rate 100 Respiratory Rate Blood Pressure 124/65 Pulse Oximetry 100 Oxygen Delivery Me thod Room Air Oxygen Flow Rate Fraction of Inspir ed Oxygen Hydration adequate: Yes Nausea and vomiting: No Pain level: 2 Mental status: Baseline
[2021-03-22] MEDS: ibuprofen 800 mg tablet PO ×2 (09:06→20:07)
[2021-03-22] MEDS: prenatal vitamin Capsule 1 CAP PO (09:06)
[2021-03-22] MEDS: docusate sodium 100 mg Capsule PO (09:06)
[2021-03-22] MEDS: HYDROcodone-acetaminophen 5-325 mg Tablet PO (13:29)
[2021-03-22 20:25] LABS: Hematocrit 29.2 % (37.0-47.0); Hemoglobin 8.4 g/dL (11.5-15.3); Mean Corpuscular HGB Conc 28.8 g/dL (30.0-36.0); Mean Corpuscular Hemoglobin 22.5 pg (28.0-34.0); Mean Corpuscular Volume 78.3 fl (81-99); Mean Platelet Volume 10.6 fL (7.4-10.4); Platelet Count 196 10^3/cmm (130-400); Red Blood Count 3.73 10^6/uL (4.1-5.3); White Blood Count 8.7 10^3/uL (4.0-10.0)
[2021-03-23] MEDS: docusate sodium 100 mg Capsule PO (08:28)
[2021-03-23] MEDS: prenatal vitamin Capsule 1 CAP PO (08:28)
[2021-03-23] MEDS: ibuprofen 800 mg tablet PO (08:28)
--- NOTE | 2021-03-23 11:07 | PM.OBGYDC ---
Discharge Providers PALLET SORTER Date of Admission: 03/21/21 21:00 Date of Discharge: 03/23/21 Attending Provider at Admission: Gianfranco Villela MD Attending Provider at Discharge: Gianfranco Villela MD Primary Care Provider: PRE-DELIVERY DIAGNOSIS: 21-year-old 6 para 2-0-3-2 at 39 weeks and 5 days gestation Elective induction of labor GBS negative Anemia on iron Hypothyroidism on medication Depression on Zoloft Asthma-mild POST-DELIVERY DIAGNOSIS: Vaginal delivery on 03/22/2021 Anemia on iron Hypothyroidism on levothyroxine Depression on Zoloft PROCEDURE: Vaginal delivery on 03/22/2021 ANESTHESIA: Epidural anesthesia DELIVERING PHYSICIAN: Gianfranco Harrison FACOG PRE-DELIVERY COURSE: Ms. Bone is a 21-year-old 6 para 2-0-3-2 at 39 weeks and 5 days who presented to labor and delivery at 9 PM for scheduled induction of labor-elective. course was complicated by hypothyroidism controlled on medication and anemia on iron. She also had anxiety and depression managed by [facility] and was on Zoloft. A lot of social issues during the and had considered adoption but most recently on 03/18/2021 was considering power of grades 6 through 8 teacher. ----> When she presented for scheduled induction of labor at 9 PM her cervix was unchanged from the clinic at 2 cm 50% and -3 station. She initiated category 1 tracing and a spontaneous deceleration resolved with position changes. She was observed for an hour and had a category 1 tracing. Induction was started at 10 PM with Cytotec x1 vaginally. After about 2 hours when patient was on the monitor patient had occasional variable decelerations which resolved with position change. After this patient started to grow uncomfortable and epidural was placed after which she was 4 cm 50% and -2 station. She was comfortable after the epidural and tracing was category 1. She made rapid cervical change after this and she was 5 cm and 2 AM and at 3:15 AM was 7 cm. She was fully dilated at 3:24 AM. tracing was category 1 DELIVERY NOTE: She was set up in lithotomy position. Patient had spontaneous rupture of membranes and immediately after this the head delivered in JATINDER position, no nuchal cord was present. The shoulders and rest of the body followed with her next push. The baby's mouth and nose were suctioned and the baby was placed on the mother's belly. Once cord pulsations stopped the cord was clamped and cut. The placenta delivered spontaneously intact with membranes and was discarded. The fundus was noted to be firm and well contracted. The vagina and cervix were inspected and no cervical or sulcal lacerations were noted. The perineum was noted to be intact Baby girl, Penny born at 3:41 AM on March 22, 2023 with 8/9, weighing 7 pounds 3 ounces, 30 to 60 g, 20 inches long. Placenta was delivered spontaneously intact with membranes at 3:45 AM. Cotyledons were intact , centrally inserted umbilical cord with 3 vessels noted. Estimated blood loss 200 mL. Complications-none, both baby and mother were left to recover in a stable condition HOSPITAL COURSE: She underwent an uncomplicated vaginal delivery on 03/22/2021. She did well on day 0 and was ambulating well, tolerating regular diet, voiding freely, passing flatus. She was formula feeding without difficulty and bonding well with her daughter. Pain was well-controlled with by mouth pain medication. She denied nausea, vomiting, fever, chills, shortness of breath, leg pain. She had moderate vaginal bleeding. On day # 1 she continued to do well with stable vital signs and stable hemoglobin at 8.4 from her predelivery level of 9.2. She was discharged home on day 1 in a stable condition, as she desired early discharge. Warning signs for endometritis, mastitis, DVT/PE were reviewed with her. Post delivery activity restrictions were also reviewed with her at all her questions were answered to her satisfaction. She desires a Mirena for contraception and this will be placed when she comes in for her visit. EXAM AT DISCHARGE: Gen.: No acute distress Heart: S1-S2 heard, regular rate and rhythm Lungs: Clear to auscultation bilaterally Abdomen: Soft, fundus firm below umbilicus, Legs: No calf tenderness, trace bilateral pitting pedal edema. CONDITION AT DISCHARGE: Stable This documentation was created by [employer] commercial solar sales consultant software (known for inherent commercial solar sales consultant error). Every effort was made to assure accuracy of commercial solar sales consultant. Any obvious errors or omissions should be clarified with the author of the document. Reason for Visit Reason for Visit: IOL Information Peripartum Data: Infant Delivery Method: Vaginal Physical Exam Urinary Catheter Management^: Mccloud: Cath Placed During This Visit: yes Urinary Catheter Date of Insertion: 03/22/21 Urinary Catheter Time of Insertion: 01:55 History History History 6 Term 3 Miscarriages/Ectopic 3 0 Living Children 3 Other History: 4, Para 3033 x 3 SAB x 3 1--> 02/20/2017, male, (Julian) 7lbs 8oz, full-term vaginal delivery, no complications with or delivery, delivered in [place] 2--> 03/2017 SAB at 9 weeks, no D&C required 3--> 06/2017, SAB at 4-5, no D&C required 4--> 04/04/2018, female, (Osorio) 8lbs 4oz, full-term vaginal delviery, complicated by hypoglycemia and hypertension, no complications with delivery, delivered at [facility] in [place], [place]. 5---> 10/2019 SAB at 11 weeks gestation, D&C 6--> 03/22/2021, female(Penny) weighing 7 pounds 3 ounces, full-term vaginal delivery at 39 weeks and 6 days, induction of [id number] induction. Del[place] Dr. Harrison [place] [facility] [place] Intact perineum. Discharge Data Data Completed and Pending: Labs from last 24 hours 03/22/21 20:00 WBC 8.7 RBC 3.73 L Hgb 8.4 L Hct 29.2 L MCV 78.3 L MCH 22.5 L MCHC 28.8 L RDW 18.0 H Plt Count 196 MPV 10.6 H Vitals: Last Vital Signs Temp 98.1 F 03/22/21 22:30 Pulse 85 03/22/21 22:30 Resp 17 03/22/21 09:05 BP 107/56 03/22/21 22:30 Pulse Ox 96 03/22/21 09:05 Discharge Plan Discharge Patient Disposition: Home Condition: Stable Prescriptions: New ibuprofen 800 mg tablet 800 mg PO Q8H Qty: 30 RF: 0 docusate sodium 100 mg Capsule 100 mg PO BID PRN (Reason: constipation) Qty: 30 RF: 0 Continued levothyroxine 175 mcg capsule 175 mcg PO .Tuesday and Tuesday RF: 0 levothyroxine 200 mcg capsule 200 mcg PO .Tuesday-Tuesday RF: 0 ferrous sulfate 325 mg (65 mg iron) tablet,delayed release (DR/EC) 325 mg PO BID Qty: 90 RF: 1 sertraline [Zoloft] 50 mg tablet 50 mg PO DAILY Qty: 30 RF: 2 1 tab PO DAILY RF: 0 Discharge Orders: Discharge Order (Routine); Ordered 03/23/21 Ordered By: Gianfranco Villela Referrals: Gianfranco Villela MD [Physician] - 04/28/21 11:30 am (Your [address] Harrison is on Wednesday April 28, 2021 at 11:30 a.m. Your 7 week IUD insertion appointment with Dr. Harrison is on Wednesday May 05, 2021 at 2:45 p.m.) Discharge Diet: Regular Discharge Activity: Limit activity as instructed Patient Instructions: Ibuprofen (By mouth), Laxative, Stimulant Combination (By mouth), Depression (DC), Bleeding (DC), Preeclampsia and Eclampsia After Delivery (GEN), Breast Care for the Non- Mother (DC), OB Discharge Report, OB Food/Drug Interaction Guide, Opioid Safety, OB Home Care, OB Vaginal Deliveries - [facility] Activity Restrictions/Additional Instructions: Pelvic rest for 6 weeks, no heavy lifting for 6 weeks, 6-week with Dr. Harrison, 7-week IUD insertion with Dr. Harrison. Discharge Attestations PALLET SORTER Time Spent in Discharge Care*: greater than 30 min Coding Level of Care Code Acute Customer Operations Associate for Chg Erika
[2021-03-23 11:30] VITALS: BP 133/73; PULSE 81; RESP 16; TEMP 36.6; O2SAT 100
== END 2021-03-23 11:45 | disposition home or self-care (01) | DRG 807 ==
LOC: OPOB 03-22 00:40 → OBGYN 03-22 00:40
PROVIDERS: Admitting Provider Obstetrics & Gynecology; PCP Nurse Practitioner Family; Visit Provider Obstetrics & Gynecology
DX: O99.344 Other mental disorders complicating childbirth (principal); Z37.0 Single live birth; F60.3 Borderline personality disorder; O99.284 Endocrine, nutritional and metabolic diseases complicating childbirth; E03.9 Hypothyroidism, unspecified; O99.214 Obesity complicating childbirth; O99.02 Anemia complicating childbirth; D50.9 Iron deficiency anemia, unspecified; O76 Abnormality in fetal heart rate and rhythm complicating labor and delivery; Z3A.39 39 weeks gestation of pregnancy; O75.89 Other specified complications of labor and delivery; F41.8 Other specified anxiety disorders; J45.20 Mild intermittent asthma, uncomplicated; Z87.891 Personal history of nicotine dependence
CPT/HCPCS: 36415; 51702; 59409; 80053; 85025; 85027; J2795

== ENCOUNTER → 2021-04-28 13:00 | Outpatient (BNVA) | payer MEDICAID, SELFPAY | PROVIDERS: PCP Nurse Practitioner Family; Visit Provider Obstetrics & Gynecology | DX: E03.9 Hypothyroidism, unspecified (principal); Z11.3 Encounter for screening for infections with a predominantly sexual mode of transmission; B37.3 Candidiasis of vulva and vagina | CPT/HCPCS: 84443; 84702; 87491; 87591; 87661 ==

== ENCOUNTER → 2021-05-05 14:30 | Outpatient (BNVA) | payer MEDICAID, SELFPAY | PROVIDERS: PCP Nurse Practitioner Family; Visit Provider Obstetrics & Gynecology | DX: Z30.9 Encounter for contraceptive management, unspecified (principal); Z32.00 Encounter for pregnancy test, result unknown | CPT/HCPCS: 81025 ==

== ENCOUNTER 2021-08-20 12:35 | Emergency (ER) | payer MEDICAID, SELFPAY ==
[2021-08-20 13:05] VITALS: BP 110/73; PULSE 95; RESP 16; TEMP 36.7; O2SAT 98; BMI 37.8
--- NOTE | 2021-08-20 14:46 | ED_ITS ---
HPI - Abdominal Pain General: Chief Complaint: Nausea/Vomiting/Diarrhea Stated Complaint: Gallbladder pain, fever Time Seen by Provider: 08/20/21 14:35 Source: patient Mode of arrival: ambulatory Limitations: no limitations History of Present Illness: Patient is a 21-year-old female who presents to ED today with a complaint of diffuse abdominal pains, nausea, vomiting, diarrhea. Patient seems to think that her symptoms are related to a bad gallbladder stating that she had an ultrasound performed 4 years ago while and was told her gallbladder was bad but states they would not do surgery secondary to her status. Patient states following delivery symptoms seemed to improve so she never followed up. She states over the past several years she has had intermittent flares of symptoms. Patient states over the last 2 weeks her symptoms have been constant and severe in intensity. She complains of diffuse abdominal pains, severe nausea and vomiting worse with eating, and s tating she is unable to control her bowels. No fevers. MD elicited complaint: abdominal pain Onset (ago): week(s) Pain Consistency: intermittent Location: Diffuse Severity: severe Quality: cramping Radiation: none Migration to: no migration Exacerbating factors: eating Relieving factors: bowel movement and vomiting Associated Symptoms: Reports diarrhea, nausea and vomiting; Denies chills, dysuria, fever(s), hematochezia, hematuria, hematemesis and melena Related Data: Date of Last Menstrual Period: 08/14/21 Patient : No Review of Systems Const: Denies: fever(s), chills, body aches, fatigue or malaise Card: Denies: chest pain Resp: Denies: dyspnea GI: Reports: abdominal pain, nausea, vomiting and diarrhea; Denies: hematemesis, hematochezia or melena : Denies: flank pain, dysuria, hematuria, vaginal bleeding or vaginal discharge Musc: Denies: neck pain, back pain, extremity pain or joint pain Skin/Breast: Denies: rash Neuro: Denies: headache(s) [facility] ED PFSH: Medical History Asthma Diagnosed at the age of 11 and is controlled with as needed albuterol inhaler which is worse over allergy season and winter. Denies any intubations or hospitalizations for asthma. Borderline personality disorder Multiple psychiatric issues for which she follows up with behavioral health care and is taking Lamictal. Her provider is aware that she is . Hypothyroid Diagnosed at the age of 9 and has been on medication since then. No pertinent past medical history Denies diabetes, hypertension, seizures, DVT/PE PCP: RAMSES Basilio Surgical History Hx of appendectomy 2010--laparoscopic procedure Hx of dilation and curettage 2019--done for a missed at 9 weeks Hx of vaginal surgery 10/23/2011---surgery done at [facility]--procedure performed was examination under anesthesia with reattachment of the avulsed left labia minora, repair of a name mucosa and transected anal sphincter and perineum and proctoscopy performed by OB/general surgery. Operative reports have been scanned into the computer. Family History Father Colon cancer dx age 46--- cancer began in brain and spread Diabetes Hypertension Grandmother Diabetes Paternal Thyroid disease Paternal Family/Other Ovarian cancer Paternal Aunt--dx age 32 Heart disease paternal aunt Sister Thyroid disease Brother Heart disease congenital heart disease Denies family history of Hypercholesteremia Breast cancer Uterine cancer Stroke Social History Smoking and tobacco status: never smoked Female Reproductive History: Date of last menstrual period: 08/14/21 Physical Exam Const: COMMON NORMALS: no acute distress, patient oriented x3, no limitations and alert GENERAL APPEARANCE: cooperative NUTRITIONAL APPEARANCE: obese ORIENTATION/CONSCIOUSNESS: Yes awake, Yes oriented to person, Yes oriented to place and Yes oriented to time HENMT: COMMON NORMALS: normocephalic and atraumatic HEAD & SCALP: normocephalic and atraumatic Resp: COMMON NORMALS: normal respiratory effort and clear to auscultation bilaterally AUSCULTATION: clear to auscultation bilaterally Cardio: COMMON NORMALS: regular rate and regular rhythm RATE: regular rate RHYTHM: regular rhythm GI: COMMON NORMALS: Normal to inspection, nondistended, normoactive bowel sounds present, Soft to palpation, No hepatosplenomegaly present and no masses INSPECTION: Yes normal to inspection AUSCULTATION: Yes Hypoactive bowel sounds present PALPATION: Yes Soft to palpation, Yes Tenderness to palpation present (GI) (throughout L abdomen and lower abdomen), Yes No hepatosplenomegaly present and Yes Other GI palpation findings present (no tenderness to RUQ/neg Lucero's) : COMMON NORMALS: Yes no CVA tenderness BLADDER/KIDNEY EXAM: Yes no CVA tenderness Back/Pelvis: COMMON NORMALS: no CVA tenderness Extremity: COMMON NORMALS: normal to inspection Neuro: YOGESH COMA SCALE: document GCS findings [place] coma scale eye openi ng: Spontaneous Yogesh coma scale verbal response: Orientated [place] coma scale motor response: Obey commands [place] coma scale total score: 15 COMMON NORMALS: patient oriented x3, moves all extremities, no focal motor deficits, no sensory deficits noted and gait normal SENSORIUM/ORIENTATION: Yes alert, Yes oriented to person, Yes oriented to place and Yes oriented to time Skin: COMMON NORMALS: no rashes or lesions noted GENERAL SKIN EXAM: no rashes or lesions noted Course Vital Signs: Vital signs: Vital Signs Temperature 98.1 F 08/20/21 15:37 Pulse Rate 95 08/20/21 15:37 Respiratory Rate 16 08/20/21 15:37 Blood Pressure 110/73 08/20/21 15:37 Pulse Oximetry 98 08/20/21 15:37 MDM - Abdominal Pain Medical Decision Making Patient clinically is non-ill, non-toxic appearing. Her vital signs are perfect. Blood work/UA are unremarkable. CT scan is negative for any type of emergent process. She does have some scattered mesenteric root prominent lymph nodes that are nonspecific. Recommend patient follow-up with her primary care provider for further evaluation. We will place her on Bentyl to see if this helps with her abdominal pain/cramping. We also discussed possibility of a GI referral in the future if symptoms do not improve. She had no tenderness to RUQ on exam therefore I did not pursue US gallbladder imaging. Lab Data : 08/20/21 14:30 08/20/21 14:30 Labs/Radiology: Radiology Impressions Abdomen/Pelvis CT 08/20/21 15:05 IMPRESSION: 1. Negative for acute inflammatory process in the abdomen or pelvis. 2. Mild splenomegaly with the spleen measuring 13.7 mm. 3. IUD in the uterine cavity. 4. Scattered prominent subcentimeter short axis lymph nodes in the mesenteric root, nonspecific. Laboratory Results WBC 5.7 10^3/uL (4.0-10.0) 08/20/21 14:30 RBC 4.87 10^6/uL (4.1-5.3) 08/20/21 14:30 Hgb 12.6 g/dL (11.5-15.3) 08/20/21 14:30 Hct 40.6 % (37.0-47.0) 08/20/21 14: MCV 83.4 fl (81-99) 08/20/21 14:30 MCH 25.9 pg (28.0-34.0) L 08/20/21 14: MCHC 31.0 g/dL (30.0-36.0) 08/20/21 14: RDW 15.8 % (12.1-15.1) H 08/20/21 14:30 Plt Count 273 10^3/cmm (130-400) 08/20/21 14: MPV 10.7 fL (7.4-10.4) H 08/20/21 14:30 Neut % (Auto) 59.0 % 08/20/21 14:30 Lymph % (Auto) 30.4 % 08/20/21 14:30 Ness % (Auto) 7.2 % 08/20/21 14:30 Eos % (Auto) 2.7 % 08/20/21 14:30 Baso % (Auto) 0.5 % 08/20/21 14:30 Neut # (Auto) 3.34 10^3/uL (1.8-7.7) 08/20/21 14:30 Lymph # (Auto) 1.7 10^3/uL (0.8-4.8) 08/20/21 14:30 Ness # (Auto) 0.4 10^3/uL (0.2-0.9) 08/20/21 14:30 Eos # (Auto) 0.2 10^3/uL (0.0-0.8) 08/20/21 14:30 Baso # (Auto) 0.0 10^3/uL (0.0-0.1) 08/20/21 14:30 Nucleated RBC % (auto) 0 % 08/20/21 14:30 Nucleated RBCs # 0.0 /100WBC 08/20/21 14:30 Sodium 140 mmol/L (136-145) 08/20/21 14:30 Potassium 4.3 mmol/L (3.5-5.1) 08/20/21 14:30 Chloride 104 mmol/L (98-107) 08/20/21 14:30 Carbon Dioxide 26 mmol/L (22-29) 08/20/21 14:30 Anion Gap 14.3 (5-19) 08/20/21 14:30 BUN 6 mg/dL (6-20) 08/20/21 14:30 Creatinine 0.5 mg/dL (0.5-0.9) 08/20/21 14:30 GFR Calculation 152.9 mL/min (90-130) H 08/20/21 14:30 Glucose 85 mg/dL (65-115) 08/20/21 14:30 Calculated Osmolality 287 mOsm/kg (285-295) 08/20/21 14:30 Calcium 9.8 mg/dL (8.5-10.5) 08/20/21 14:30 Total Bilirubin 0.2 mg/dL (0.15-1.2) 08/20/21 14:30 AST 20 U/L (0-32) 08/20/21 14:30 ALT 18 U/L (0-33) 08/20/21 14:30 Alkaline Phosphatase 147 IU/L (35-105) H 08/20/21 14:30 Total Protein 7.2 g/dL (6.6-8.7) 08/20/21 14:30 Albumin 4.6 g/dL (3.5-5.2) 08/20/21 14:30 Globulin 2.6 g/dL (1.3-4.6) 08/20/21 14:30 Lipase 31 U/L (13-60) 08/20/21 14:30 HCG, Qual Negative (Negative) 08/20/21 14:30 Urine Color Straw (Yellow) 08/20/21 13:00 Urine Appearance Clear (CLEAR) 08/20/21 13:00 Urine pH 8 (5-7) H 08/20/21 13:00 Ur Specific Belt 1.005 (1.005-1.030) 08/20/21 13:00 Urine Protein Neg (Negative) 08/20/21 13:00 Urine Glucose (UA) Norm (Normal) 08/20/21 13:00 Urine Ketones Negative (Negative) 08/20/21 13:00 Urine Blood Neg (Negative) 08/20/21 13:00 Urine Nitrate Negative (Negative) 08/20/21 13:00 Urine Bilirubin Neg (Negative) 08/20/21 13:00 Prot Sulfosalicylic Acd Negative (Negative) 08/20/21 13:00 Urine Urobilinogen Norm mg/dL (Negative) 08/20/21 13:00 Ur Leukocyte Esterase Negative (Negative) 08/20/21 13:00 Discharge Plan Discharge Patient Disposition: Home Clinical Impression: Abdominal pain of unknown cause, Nausea vomiting and diarrhea Condition: Stable Prescriptions: New cyclobenzaprine 10 mg tablet 10 mg PO TID Qty: 14 0RF ondansetron 4 mg tablet,disintegrating 4 mg PO Q8H PRN (Reason: nausea and vomiting) Qty: 14 0RF No Action sertraline [Zoloft] 50 mg tablet 75 mg PO DAILY 30 Days Qty: 45 0RF levothyroxine 175 mcg capsule 175 mcg PO DAILY 0RF Discharge Orders: Discharge ED (Routine); Ordered 08/20/21 Ordered By: Alisa Leal Referrals: Kasandra Ruiz [Referring] - Patient Instructions: Abdominal Pain (ED) Stand Alone Forms: Work/School Release Coding Level of Care Code 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
[2021-08-20 14:51] LABS: Add Urine Microscopic? NO; Charge for UA Resulting for Rev
[2021-08-20 15:05] LABS: Specific Gravity, Urine 1.005 (1.005-1.030); Urine Appearance Clear (CLEAR); Urine Color Straw (Yellow); pH Urine 8 (5-7)
--- NOTE | 2021-08-20 15:05 | CTR_ITS ---
PROCEDURE INFORMATION: Exam: CT Abdomen And Pelvis Without Contrast Exam date and time: 08/20/2021 4:18 PM Age: 21 years old Clinical indication: Nausea and vomiting; Abdominal pain; Prior surgery; Surgery type: Appendix, d/c vaginal; Additional info: Left and lower abdominal pains; N/v/d, contrast shortage TECHNIQUE: Imaging protocol: Computed tomography of the abdomen and pelvis without contrast. Radiation optimization: All CT scans at this facility use at least one of these dose optimization techniques: automated exposure control; mA and/or kV adjustment per patient size (includes targeted exams where dose is matched to clinical indication); or iterative reconstruction. COMPARISON: US OB follow up [facility] 02/25/2021 9:53 AM RADIATION DOSE METRICS: Total DLP (mGy-cm): 2062. FINDINGS: Liver: Normal. No mass. Gallbladder and bile ducts: Normal. No calcified stones. No ductal dilation. Pancreas: Normal. No ductal dilation. Spleen: Mild splenomegaly with the spleen measuring 13.7 mm. Adrenal glands: Normal. No mass. Kidneys and ureters: Normal. No hydronephrosis. Stomach and bowel: Unremarkable. No obstruction. No mucosal thickening. Appendix: No evidence of appendicitis. Intraperitoneal space: Unremarkable. No free air. No significant fluid collection. Vasculature: Unremarkable. No abdominal aortic aneurysm. Lymph nodes: Scattered prominent subcentimeter short axis lymph nodes in the mesenteric root, nonspecific. Urinary bladder: Unremarkable as visualized. Reproductive: IUD in the uterine cavity. Bones/joints: Unremarkable. No acute fracture. Soft tissues: Unremarkable. CT/CT abdomen pelvis wo con [id number] IMPRESSION: 1. Negative for acute inflammatory process in the abdomen or pelvis. 2. Mild splenomegaly with the spleen measuring 13.7 mm. 3. IUD in the uterine cavity. 4. Scattered prominent subcentimeter short axis lymph nodes in the mesenteric root, nonspecific.
[2021-08-20 15:06] LABS: Bilirubin Urine Neg (Negative); Blood Urine Neg (Negative); Glucose Urine UA Norm (Normal); Ketones Urine Negative (Negative); Leukocyte Esterase Urine Negative (Negative); Nitrate Urine Negative (Negative); Protein Urine Neg (Negative); Sulfosalicylic Acid Urine Negative (Negative); Urobilinogen Urine Norm (Negative)
[2021-08-20 15:36] LABS: Basophils % 0.5 %; Eosinophils # 0.2 10^3/uL (0.0-0.8); Eosinophils % 2.7 %; Hematocrit 40.6 % (37.0-47.0); Hemoglobin 12.6 g/dL (11.5-15.3); Lymphocytes # 1.7 10^3/uL (0.8-4.8); Lymphocytes % 30.4 %; Mean Corpuscular Hemoglobin 25.9 pg (28.0-34.0); Mean Corpuscular Volume 83.4 fl (81-99); Mean Platelet Volume 10.7 fL (7.4-10.4); Monocytes # 0.4 10^3/uL (0.2-0.9); Monocytes % 7.2 %; Neutrophils # 3.34 10^3/uL (1.8-7.7); Nucleated Red Blood Cells % 0 %; Platelet Count 273 10^3/cmm (130-400); Red Blood Count 4.87 10^6/uL (4.1-5.3); Red Cell Distribution Width 15.8 % (12.1-15.1); White Blood Count 5.7 10^3/uL (4.0-10.0)
[2021-08-20 15:37] VITALS: BP 110/73; PULSE 95; RESP 16; TEMP 36.7; O2SAT 98
[2021-08-20] MEDS: HYDROmorphone 1 mg/mL INJ 1 mL 0.5 MG IVP (15:41)
[2021-08-20] MEDS: ondansetron 2 mg/ML SDV 2 mL 4 MG IVP (15:41)
[2021-08-20] MEDS: sodium chloride 0.9% 1,000 ML 999 ML IV (15:41)
[2021-08-20 15:51] LABS: Alanine Aminotransferase 18 U/L (0-33); Albumin Level 4.6 g/dL (3.5-5.2); Alkaline Phosphatase 147 IU/L (35-105); Blood Urea Nitrogen 6 mg/dL (6-20); Calcium 9.8 mg/dL (8.5-10.5); Carbon Dioxide 26 mmol/L (22-29); Chloride 104 mmol/L (98-107); Globulin 2.6 g/dL (1.3-4.6); Glomerular Filtration Rate 152.9 mL/min (90-130); Glucose 85 mg/dL (65-115); Lipase 31 U/L (13-60); Osmolality Calculated 287 mOsm/kg (285-295); Sodium 140 mmol/L (136-145); Total Bilirubin 0.2 mg/dL (0.15-1.2); Total Protein 7.2 g/dL (6.6-8.7)
[2021-08-20 15:57] LABS: Anion Gap 14.3 (5-19)
[2021-08-20 15:58] LABS: Aspartate Amino Transferase 20 U/L (0-32); Potassium 4.3 mmol/L (3.5-5.1)
[2021-08-20 15:59] LABS: HCG, Serum Qual Negative (Negative)
== END 2021-08-20 17:36 | disposition home or self-care (01) ==
PROVIDERS: Emergency Provider Physician Assistant; PCP Registered Nurse
DX: R10.9 Unspecified abdominal pain (principal); R11.2 Nausea with vomiting, unspecified; R19.7 Diarrhea, unspecified
CPT/HCPCS: 74176; 80053; 81003; 83690; 84703; 85025; 96361; 96374; 96375; 99284; J1170; J2405; J7030

== ENCOUNTER → 2021-08-25 08:56 | Outpatient (BNVA) | payer MEDICAID, SELFPAY | PROVIDERS: PCP Registered Nurse; Visit Provider Registered Nurse | DX: R16.1 Splenomegaly, not elsewhere classified (principal); R10.9 Unspecified abdominal pain; R11.2 Nausea with vomiting, unspecified; R19.7 Diarrhea, unspecified; K90.49 Malabsorption due to intolerance, not elsewhere classified | CPT/HCPCS: 85025; 86308 ==

== ENCOUNTER → 2021-10-22 09:35 | Outpatient (BNVA) | payer MEDICAID, SELFPAY | PROVIDERS: PCP Registered Nurse; Visit Provider Registered Nurse | DX: E03.9 Hypothyroidism, unspecified (principal); M25.512 Pain in left shoulder; F33.2 Major depressive disorder, recurrent severe without psychotic features | CPT/HCPCS: 84443 ==

== ENCOUNTER → 2021-11-04 09:04 | Outpatient (BNVA) | payer MEDICAID, SELFPAY | PROVIDERS: PCP Registered Nurse; Visit Provider Nurse Practitioner Women's Health | DX: R10.2 Pelvic and perineal pain (principal); Z30.431 Encounter for routine checking of intrauterine contraceptive device | CPT/HCPCS: 87491; 87591; 87661 ==

== ENCOUNTER → 2021-11-12 09:49 | Outpatient (BNVA) | payer MEDICAID, SELFPAY | PROVIDERS: PCP Registered Nurse; Visit Provider Nurse Practitioner Women's Health | DX: R10.2 Pelvic and perineal pain (principal); Z97.5 Presence of (intrauterine) contraceptive device | CPT/HCPCS: 76830 ==

== ENCOUNTER → 2021-11-17 10:51 | Outpatient (BNVA) | payer MEDICAID, SELFPAY | PROVIDERS: PCP Registered Nurse; Visit Provider Registered Nurse | DX: E03.9 Hypothyroidism, unspecified (principal); M67.912 Unspecified disorder of synovium and tendon, left shoulder | CPT/HCPCS: 84443 ==

== ENCOUNTER 2021-12-02 10:26 | Outpatient (RCR) | payer MEDICAID, SELFPAY | END 2021-12-16 23:59 | disposition home or self-care (01) | LOC: SPT 10:26 | PROVIDERS: PCP Registered Nurse; Referring Provider Registered Nurse; Visit Provider Registered Nurse | DX: M25.512 Pain in left shoulder (principal); G89.11 Acute pain due to trauma; V89.2XXS Person injured in unspecified motor-vehicle accident, traffic, sequela | CPT/HCPCS: 97110; 97162 ==

== ENCOUNTER 2022-01-06 | Outpatient (RCR) | payer MEDICAID, SELFPAY | END 2022-01-12 11:32 | disposition home or self-care (01) | LOC: SPT | PROVIDERS: PCP Registered Nurse; Visit Provider Registered Nurse | DX: M25.512 Pain in left shoulder (principal); G89.11 Acute pain due to trauma; V89.2XXS Person injured in unspecified motor-vehicle accident, traffic, sequela | CPT/HCPCS: 97110 ==

== ENCOUNTER 2022-01-10 09:57 | Emergency (ER) | payer MEDICAID, SELFPAY ==
[2022-01-10 10:09] VITALS: BP 108/62; PULSE 91; RESP 16; TEMP 36.3; O2SAT 98; BMI 37.8
--- NOTE | 2022-01-10 10:31 | W.ED.GENADLT ---
HPI - General Adult General: Chief complaint: General Medical Stated complaint: Sore throat, Congestion Time Seen by Provider: 01/10/22 10:19 Source: patient Mode of arrival: ambulatory Limitations: no limitations History of Present Illness: This patient accompanies her young son to the emergency department this morning because she states she has had sinus drainage and mild sore throat without fever. She states that she is a nontobacco user. She states that he has had sore throat over 24 hours as well and so therefore she wonders if she is similarly affected. No other known exposure to infectious disease. She has a thyroid prescription prescription that she is taking faithfully. She is been able to eat and drink normally. Associated symptoms: Reports no associated symptoms; Deny chest pain, dyspnea, headache(s), nausea, rash, palpitations or vomiting Review of Systems Const: Denies: fever(s) or chills Eyes: Denies: change in vision or blurry vision ENMT: Reports: throat pain, nasal discharge and post nasal drip; Denies: odynophagia, ear or mastoid pain or nasal congestion Card: Denies: chest pain, palpitations or irregular heart rhythm Resp: Denies: dyspnea, productive cough or non-productive cough GI: Denies: abdominal pain, nausea or vomiting : Denies: flank pain, difficulty voiding, dysuria or urinary frequency Musc: Denies: neck pain, back pain or extremity pain Skin/Breast: Denies: rash Neuro: Denies: headache(s), numbness in extremities or weakness in extremities Endo: Denies: polyuria or polydipsia PFS ED PFSH: Medical History Asthma Diagnosed at the age of 11 and is controlled with as needed albuterol inhaler which is worse over allergy season and winter. Denies any intubations or hospitalizations for asthma. Borderline personality disorder Multiple psychiatric issues for which she follows up with behavioral health care and is taking Lamictal. Her provider is aware that she is . Hypothyroid Diagnosed at the age of 9 and has been on medication since then. No pertinent past medical history Denies diabetes, hypertension, seizures, DVT/PE PCP: RAMSES Basilio Surgical History Hx of appendectomy 2010--laparoscopic procedure Hx of dilation and curettage 2019--done for a missed at 9 weeks Hx of vaginal surgery 10/23/2011---surgery done at [facility]--procedure performed was examination under anesthesia with reattachment of the avulsed left labia minora, repair of a name mucosa and transected anal sphincter and perineum and proctoscopy performed by OB/general surgery. Operative reports have been scanned into the computer. Family History Father Colon cancer dx age 46--- cancer began in brain and spread Diabetes Hypertension Grandmother Diabetes Paternal Thyroid disease Paternal Family/Other Ovarian cancer Paternal Aunt--dx age 32 Heart disease paternal aunt Sister Thyroid disease Brother Heart disease congenital heart disease Denies family history of Hypercholesteremia Breast cancer Uterine cancer Stroke Female Reproductive History: Date of last menstrual period: 12/27/21 Physical Exam Narrative: EXAM NARRATIVE: She appears to be comfortable and interactive. Const: COMMON NORMALS: no acute distress and patient oriented x3 GENERAL APPEARANCE: cooperative and comfortable NUTRITIONAL APPEARANCE: overweight HENMT: COMMON NORMALS: normocephalic, atraumatic, Normal nasal mucous membranes and turbinates present, moist oral mucous membranes, oropharynx normal and dentition normal HEAD & SCALP: normocephalic and atraumatic FACE & SINUS: normal facial exam, sinuses nontender and face symmetric NOSE: Normal nasal mucous membranes and turbinates present and No nasal discharge present OTHER: Oropharynx is normal in appearance with pink mucosa. No exudate. No peritonsillar masses, uvula is midline. Tongue is mobile. Normal dentition nontender. Eye: COMMON NORMALS: Equal, round and reactive pupils present, EOMs intact bilaterally and conjunctivae normal CONJUNCTIVA: Yes conjunctivae normal PUPIL: Yes Equal, round and reactive pupils present Neck/C-Spine: COMMON NORMALS: full ROM, no lymphadenopathy and supple Chest: COMMONS NORMALS: normal inspection of the chest Resp: COMMON NORMALS: normal respiratory effort, No use of accessory muscles and clear to auscultation bilaterally AUSCULTATION: clear to auscultation bilaterally Cardio: COMMON NORMALS: regular rate, regular rhythm, No murmurs present (Cardio) and Peripheral pulses 2+ throughout RATE: regular rate RHYTHM: regular rhythm PERIPHERAL PULSES: Peripheral pulses 2+ throughout : COMMON NORMALS: Yes no CVA tenderness BLADDER/KIDNEY EXAM: Yes no CVA tenderness Back/Pelvis: COMMON NORMALS: no CVA tenderness, thoracic and lumbar spine normal to inspection and no thoracic nor lumbar tenderness Extremity: COMMON NORMALS: normal to inspection and capillary refill normal Neuro: COMMON NORMALS: patient oriented x3, moves all extremities, no focal motor deficits and no sensory deficits noted CRANIAL NERVES: Yes CN normal except as noted Psych: COMMON NORMALS: mental status grossly normal Skin: COMMON NORMALS: no rashes or lesions noted and turgor normal GENERAL SKIN EXAM: no rashes or lesions noted and turgor normal Course Reevaluation(s): Reevaluation #1: No new or focal findings. Her clinical examination is very reassuring. No evidence at this time of entity any suggestion of a bacterial infection. Time: 11:12 Vital Signs: Vital signs: Vital Signs Temperature 97.3 F L 01/10/22 10:09 Pulse Rate 91 01/10/22 10:09 Respiratory Rate 16 01/10/22 10:09 Blood Pressure 110/70 01/10/22 10:48 Pulse Oximetry 98 01/10/22 10:09 [facility] - General Adult Medical Decision Making Clinical exam is very reassuring. No evidence of of any findings that suggest an ongoing emergency medical condition. Consistent with likely viral upper airway infection and rhinitis. Send strep screen is negative which also is reaffirming of these findings. Discussed symptomatic treatment and expected course and return precautions. Discharge Plan Discharge Patient Disposition: Home Clinical Impression: Viral pharyngitis Condition: Stable Prescriptions: No Action ibuprofen 800 mg tablet 800 mg PO BID 30 Days Qty: 60 0RF sertraline [Zoloft] 50 mg tablet 75 mg PO DAILY 30 Days Qty: 45 2RF Mirena 20 mcg/24 hours (7 yrs) 52 mg intrauterine device intrauterine omeprazole 20 mg capsule,delayed release(DR/EC) 20 mg PO DAILY 90 Days Qty: 90 1RF Rx Instructions: Take on empty stomach levothyroxine 100 mcg capsule 100 mcg PO DAILY 90 Days Qty: 90 1RF Discharge Orders: Discharge ED (Routine); Ordered 01/10/22 Ordered By: Aristides Rueda Referrals: Niharika Aggarwal FNP [Primary Care Provider] - Discharge Diet: Usual diet Discharge Activity: Resume usual activity Patient Instructions: Opioid Safety, Pain Management Activity Restrictions/Additional Instructions: As we discussed no evidence today in the emergency department of a serious illness requiring antibiotics or other intervention. You may continue to use saline nasal sprays for any congestion or postnasal drip and [id number] antihistamines. Should you develop fever, increasing difficulty swallowing or any concerns at any time return to this or the nearest emergency department. Coding Level of Care Code ED Director Of Web Marketing for Juana Fwjennyfer Exam Comprehensive
[2022-01-10 10:48] VITALS: BP 110/70
[2022-01-10 11:35] VITALS: BP 108/61; PULSE 84; O2SAT 98
== END 2022-01-10 11:30 | disposition home or self-care (01) ==
PROVIDERS: Emergency Provider Emergency Medicine; PCP Registered Nurse
DX: J02.8 Acute pharyngitis due to other specified organisms (principal); J45.909 Unspecified asthma, uncomplicated; E03.9 Hypothyroidism, unspecified
CPT/HCPCS: 99282

== ENCOUNTER → 2022-01-12 11:25 | Outpatient (BNVA) | payer MEDICAID, SELFPAY | PROVIDERS: PCP Registered Nurse; Visit Provider Registered Nurse | DX: M25.512 Pain in left shoulder (principal); J02.9 Acute pharyngitis, unspecified; J01.40 Acute pansinusitis, unspecified | CPT/HCPCS: 87426 ==